=== PATIENT | male | born 1940 | race Caucasian/White ===

== ENCOUNTER 2018-09-20 01:58 | Emergency (ER) | payer MEDICARE, SELFPAY ==
[2018-09-20] VITALS (9 sets, daily range): BP systolic 88–192; BP diastolic 67–160; PULSE 67–148; RESP 18–36; TEMP 36.8; O2SAT 96–99; BMI 31.1
--- NOTE | 2018-09-20 02:03 | DI.RAD.S_ITS ---
PROCEDURE: XR CHEST 1V INDICATIONS: shortness of breath, chest pain TECHNIQUE: One view of the chest was acquired. COMPARISON: None. FINDINGS: Surgical changes and devices: None. Lungs and pleura: No pleural effusions or pneumothorax. Lungs are clear. Mediastinum: Mediastinal contours appear normal. Heart size is enlarged. Bones and chest wall: No suspicious bony lesions. Overlying soft tissues appear unremarkable. IMPRESSION: Cardiomegaly. No acute pulmonary findings. Dictated by: Diane Lopez M.D. on 09/20/2018 at 8:27 Approved by: Diane Lopez M.D. on 09/20/2018 at 8:27
[2018-09-20] MEDS: SODIUM CHLORIDE 0.9% 1,000 ML 150 ML IV (02:08)
[2018-09-20] MEDS: ASPIRIN 81 MG TAB 324 MG PO (02:08)
--- NOTE | 2018-09-20 02:09 | ED.CHESTPAIN ---
HPI - Chest Pain General Chief Complaint: Chest Pain Stated Complaint: chest pain Time Seen by Provider: 09/20/18 02:02 Source: patient and family Mode of arrival: ambulatory Limitations: no limitations History of Present Illness HPI narrative: 78-year-old nonsmoker with cardiac history presents with his and a chief complaint of gradually worsening chest pain for the past 2-3 days. He has had increasing exercise intolerance and has become more short of breath and weak with exertion. He has had this anterior chest pain for the past day or 2 and states his notably worse when he lays flat or takes any kind of breath. He denies being recently ill with runny nose, sore throat or cough. He denies any history blood clots. MD complaint: chest pain Onset (ago): day(s) Duration: constant and progressively worsening Onset: during rest Pain location: substernal and left chest Severity: moderate Quality: tightness and aching Pain radiation: LUE Relieving factors: nothing Exacerbating factors: movement Associated symptoms: nausea and dyspnea Treatments prior to arrival chest pain: none Related Data Home Medications Medication Instructions Recorded Confirmed furosemide 20 mg PO QDAY #0 10/15/16 furosemide 40 mg PO QDAY #0 10/15/16 spironolactone [Aldactone] 25 mg PO QDAY #0 10/15/16 Allergies Allergy/AdvReac Type Severity Reaction Status Date / Time No Known Drug Allergies Allergy Verified 09/20/18 02:09 Review of Systems Review of Systems All systems reviewed & are unremarkable except as noted in HPI and below Constitutional Denies chills, Denies fever(s), Denies lethargy and Denies weakness Eyes Denies change in vision, Denies eye discharge, Denies irritation and Denies loss of vision ENT Ears, Nose, Mouth, and Throat: Denies change in voice, Denies neck pain and Denies sore throat Cardiovascular Reports chest pain, Denies irregular heart rhythm, Denies lightheadedness, Denies palpitations, Reports dyspnea, Reports dyspnea on exertion and Denies orthopnea Respiratory Denies cough, Reports dyspnea, Reports dyspnea on exertion and Denies wheezing Gastrointestinal Gastrointestinal: Denies abdominal pain, Denies change in bowel habits, Denies diarrhea, Denies nausea and Denies vomiting Genitourinary Denies hematuria, Denies flank pain, Denies urinary incontinence and Denies urinary urgency Musculoskeletal Denies neck pain Integumentary/Breasts Denies pruritus, Denies erythema, Denies rash and Denies wounds Neurologic Denies confusion, Denies loss of vision and Denies weakness Psychiatric Denies anxiety, Denies confusion, Denies depression, Denies homicidal ideation and Denies suicidal ideation Endocrine Denies palpitations Hematologic/Lymphatic Denies easy bruising Allergic/Immunologic Denies wheezing [facility] Surgical History Status post hernia repair Social History Smoking Status: Never smoker Exam Narrative Exam Narrative: GENERAL: 78-year-old male, ill-appearing and in obvious distress, clutching his anterior chest, resistant to take a deep breath HEAD: Atraumatic. Normocephalic. No temporal or scalp tenderness. EYES: Pupils equal round and reactive. Extraocular motions intact. No scleral icterus. No injection or drainage. ENT: Nose without bleeding, purulent drainage or septal hematoma. Throat without erythema, tonsillar hypertrophy or exudate. Uvula midline. Airway patent. NECK: Trachea midline. No JVD or lymphadenopathy. Supple, nontender, no meningeal signs. CARDIOVASCULAR: Tachycardic rate and regular arhythm without murmurs, gallops, or rubs. RESPIRATORY: Clear to auscultation. Breath sounds equal bilaterally. No wheezes, rales, or rhonchi. GASTROINTESTINAL: Abdomen soft, non-tender, nondistended. No hepato-splenomegaly, or palpable masses. No guarding. EXTREMITIES: No clubbing, cyanosis, or edema. No joint tenderness, effusion, or edema noted. BACK: Nontender without deformity or crepitance. No flank tenderness. NEURO: AOx3. SKIN: pale, clammy Initial Vital Signs Initial Vital Signs: Vital Signs Pulse Rate 148 H 09/20/18 02:05 Respiratory Rate 36 H 09/20/18 02:05 Blood Pressure 169/105 H 09/20/18 02:05 Pulse Oximetry 99 09/20/18 02:05 Procedures Cardioversion Indication: chest pain with tachy arrhythmia Stability: Unstable ASA Class: III Mallampati Airway Classification: Class II Preparation: environmental monitoring technician applied, pulse oximeter, capnometry used, supplemental O2 applied, suction/airway equipment at bedside and IV secured IV Propofol Dose (mgs): 50 Joules used: 50 ED Sedation Level: Moderate (Concious) Cardiac rhythm post-cardioversion: NSR Patient tolerated procedure sedation: Well Complications sedation: none Procedural Sedation Patient Age: Patient is 5yrs or older Indication: other Preparation: environmental monitoring technician applied, pulse oximeter, capnometry used, supplemental O2 applied and suction/airway equipment at bedside IV Propofol dose (mg): 50 ED Sedation Level: Moderate (Concious) Complications: none Course Orders Ordered: ED Orders 09/20/18 EKG-12 Lead Routine 09/20/18 02:03 XR chest 1V Stat EKG-12 Lead Stat 09/20/18 02:13 B Type Natriuretic Peptide Stat Complete Blood Count AUTO DIFF Stat Comprehensive Metabolic Panel Stat D Dimer Stat Lipase Stat Prothrombin Time INR Stat Troponin & CK Cardiac Panel Stat Discontinued Medications Aspirin (Aspirin Chew) 324 mg PO NOW ONE Stop: 09/20/18 02:04 Last Admin: 09/20/18 02:08 Dose: 324 mg Sodium Chloride (Normal Saline 0.9%) 1,000 mls @ 150 mls/hr IV CONT EVY Last Infusion: 09/20/18 04:01 Dose: 0 mls/hr Admin: 09/20/18 02:08 Dose: 150 mls/hr Metoprolol Tartrate (Lopressor) 5 mg IV Q5M COUNT INCLUDES THE [facility] Stop: 09/20/18 02:26 Last Admin: 09/20/18 02:24 Dose: 5 mg Admin: 09/20/18 02:19 Dose: 5 mg Admin: 09/20/18 02:14 Dose: 5 mg Propofol (Diprivan) 50 mg 0.5 mg/kg (50 mg) IV NOW ONE Stop: 09/20/18 03:46 Last Admin: 09/20/18 02:54 Dose: 50 mg Reevaluation(s) Reevaluation #1: Patient has near complete resolution of his chest pain and shortness of breath any other symptoms post cardioversion. He is quite thankful for the success of the procedure and is ready to go Vital Signs - 8 hr 09/20/18 02:05 09/20/18 02:09 09/20/18 02:20 Temperature 98.3 F Pulse Rate 148 H 130 H 127 H Respiratory Rate 36 H 24 33 H Blood Pressure 192/160 H Blood Pressure [Left Arm] 169/105 H 133/89 Pulse Oximetry 99 97 98 09/20/18 02:46 09/20/18 03:00 09/20/18 03:08 Temperature Pulse Rate 125 H 67 67 Respiratory Rate 31 H 23 22 Blood Pressure Blood Pressure [Left Arm] 88/67 L 98/71 Pulse Oximetry 96 97 98 09/20/18 03:18 09/20/18 03:26 09/20/18 03:30 Temperature Pulse Rate 72 72 76 Respiratory Rate 18 18 Blood Pressure Blood Pressure [Left Arm] 109/75 112/81 116/72 Pulse Oximetry 98 98 MDM - Chest Pain Differential Diagnosis Likely stable angina and st elevation myocardial infarction Medical Records Data Attestation: I reviewed the patient's medical records. Lab Data Attestation: I reviewed the patient's lab results. Result diagrams: 09/20/18 02:13 09/20/18 02:13 Lab Results 09/20/18 09/20/18 09/20/18 Range/Units 02:13 02:13 02:13 WBC 16.8 H (4.5-11.0) X10^3/uL RBC 5.46 (4.5-5.9) X10^6/uL Hgb 17.4 (13.5-17.5) g/dL Hct 51.8 (41-53) % MCV 94.9 (80-100) fL MCH 31.9 (26-34) PG MCHC 33.6 (30-36) % RDW 15.1 H (11.6-14.8) % Plt Count 292 (150-400) X10^3/uL Neut % (Auto) 75.9 H (50-75) % Lymph % (Auto) 12.4 L (25-40) % [place] % (Auto) 10.0 (3-14) % Eos % (Auto) 0.3 L (2-4) % Baso % (Auto) 1.4 (0-2) % Neut # (Auto) 23802 H (0810-9711) /uL PT 14.5 H (10.1-12.7) SECONDS INR 1.2 (0.9-1.3) D-Dimer 266 H (<230) ng/mL Sodium 140 (137-145) mmol/L Potassium 4.0 (3.4-5.1) mmol/L Chloride 96 L (98-107) mmol/L Carbon Dioxide 29 (22-32) mmol/L BUN 37 H (9-20) mg/dL Creatinine 1.30 H (0.66-1.25) mg/dL Estimated GFR 53.7 L (>60) mL/min BUN/Creatinine Ratio 28.5 H (6-22) Glucose 199 H (80-110) mg/dL Calcium 10.1 (8.4-10.2) mg/dL Total Bilirubin 2.0 H (0.2-1.3) mg/dL AST 28 (17-59) IU/L ALT 21 (21-72) IU/L Alkaline Phosphatase 75 (38-126) U/L Total Creatine Kinase 30 L (55-170) U/L CK-MB (CK-2) TNP CK-MB (CK-2) Rel Index TNP Troponin I 0.023 (0.01-0.034) ng/mL B-Natriuretic Peptide < 100 (<100) Total Protein 8.8 H (6.3-8.2) g/dL Albumin 4.9 (3.5-5.0) g/dL Globulin 3.9 (1.7-4.1) g/dL Albumin/Globulin Ratio 1.3 (1.0-2.8) Lipase 80 (23-300) U/L ECG Data Attestation: I personally reviewed and interpreted this ECG as follows: Interpretation: Atrial flutter, rate 120 hyperacute T-waves in septal leads post conversion notes NSR without signs of ischemia or ectopy Discharge Plan Departure Patient Disposition: Home Clinical Impression: Atrial flutter, Obstructive sleep apnea syndrome Discharge Date/Time: 09/20/18 04:09 Interventions: ED Discharge Assessment Last Done: 09/20/18 04:07 Instructions: Atrial Flutter Activity Restrictions/Additional Instructions: *You have been diagnosed with [ atrial flutter ] *What to do: *Take medications as directed *Follow up with your primary care provider in 2-3 days, call for an appointment. Let them know you were seen in the Emergency Department and that we ask that you be seen in follow up *Return to ER if you should have any new, worsening or concerning symptoms, such as [ ] Prescriptions: No Action furosemide 20 MG tablet 20 mg PO QDAY Qty: 0 RF: 0 furosemide 40 MG tablet 40 mg PO QDAY Qty: 0 RF: 0 spironolactone [Aldactone] 25 MG tablet 25 mg PO QDAY Qty: 0 RF: 0 Referrals: Fredrick Hilario MD [Primary Care Provider] -
[2018-09-20] MEDS: METOPROLOL TARTRATE 5 MG/5 ML INJ IV ×3 (02:14→02:24)
--- NOTE | 2018-09-20 02:14 | ED_ITS ---
HPI - Chest Pain General Chief Complaint: Chest Pain Stated Complaint: chest pain Time Seen by Provider: 09/20/18 02:02 Source: patient and family Mode of arrival: ambulatory Limitations: no limitations History of Present Illness HPI narrative: 78-year-old nonsmoker with cardiac history presents with his and a chief complaint of gradually worsening chest pain for the past 2-3 days. He has had increasing exercise intolerance and has become more short of breath and weak with exertion. He has had this anterior chest pain for the past day or 2 and states his notably worse when he lays flat or takes any kind of breath. He denies being recently ill with runny nose, sore throat or cough. He denies any history blood clots. MD complaint: chest pain Onset (ago): day(s) Duration: constant and progressively worsening Onset: during rest Pain location: substernal and left chest Severity: moderate Quality: tightness and aching Pain radiation: LUE Relieving factors: nothing Exacerbating factors: movement Associated symptoms: nausea and dyspnea Treatments prior to arrival chest pain: none Related Data Home Medications Medication Instructions Recorded Confirmed furosemide 20 mg PO QDAY #0 10/15/16 furosemide 40 mg PO QDAY #0 10/15/16 spironolactone [Aldactone] 25 mg PO QDAY #0 10/15/16 Allergies Allergy/AdvReac Type Severity Reaction Status Date / Time No Known Drug Allergies Allergy Verified 09/20/18 02:09 Review of Systems Review of Systems All systems reviewed & are unremarkable except as noted in HPI and below Constitutional Denies chills, Denies fever(s), Denies lethargy and Denies weakness Eyes Denies change in vision, Denies eye discharge, Denies irritation and Denies loss of vision ENT Ears, Nose, Mouth, and Throat: Denies change in voice, Denies neck pain and Denies sore throat Cardiovascular Reports chest pain, Denies irregular heart rhythm, Denies lightheadedness, Denies palpitations, Reports dyspnea, Reports dyspnea on exertion and Denies orthopnea Respiratory Denies cough, Reports dyspnea, Reports dyspnea on exertion and Denies wheezing Gastrointestinal Gastrointestinal: Denies abdominal pain, Denies change in bowel habits, Denies diarrhea, Denies nausea and Denies vomiting Genitourinary Denies hematuria, Denies flank pain, Denies urinary incontinence and Denies urinary urgency Musculoskeletal Denies neck pain Integumentary/Breasts Denies pruritus, Denies erythema, Denies rash and Denies wounds Neurologic Denies confusion, Denies loss of vision and Denies weakness Psychiatric Denies anxiety, Denies confusion, Denies depression, Denies homicidal ideation and Denies suicidal ideation Endocrine Denies palpitations Hematologic/Lymphatic Denies easy bruising Allergic/Immunologic Denies wheezing [facility] Surgical History Status post hernia repair Social History Smoking Status: Never smoker Exam Narrative Exam Narrative: GENERAL: 78-year-old male, ill-appearing and in obvious distress, clutching his anterior chest, resistant to take a deep breath HEAD: Atraumatic. Normocephalic. No temporal or scalp tenderness. EYES: Pupils equal round and reactive. Extraocular motions intact. No scleral icterus. No injection or drainage. ENT: Nose without bleeding, purulent drainage or septal hematoma. Throat without erythema, tonsillar hypertrophy or exudate. Uvula midline. Airway patent. NECK: Trachea midline. No JVD or lymphadenopathy. Supple, nontender, no meningeal signs. CARDIOVASCULAR: Tachycardic rate and regular arhythm without murmurs, gallops, or rubs. RESPIRATORY: Clear to auscultation. Breath sounds equal bilaterally. No wheezes , rales, or rhonchi. GASTROINTESTINAL: Abdomen soft, non-tender, nondistended. No hepato-splenomegaly , or palpable masses. No guarding. EXTREMITIES: No clubbing, cyanosis, or edema. No joint tenderness, effusion, or edema noted. BACK: Nontender without deformity or crepitance. No flank tenderness. NEURO: AOx3. SKIN: pale, clammy Initial Vital Signs Initial Vital Signs: Vital Signs Pulse Rate 148 H 09/20/18 02:05 Respiratory Rate 36 H 09/20/18 02:05 Blood Pressure 169/105 H 09/20/18 02:05 Pulse Oximetry 99 09/20/18 02:05 Procedures Cardioversion Indication: chest pain with tachy arrhythmia Stability: Unstable ASA Class: III Mallampati Airway Classification: Class II Preparation: campus monitor applied, pulse oximeter, capnometry used, supplemental O2 applied, suction/airway equipment at bedside and IV secured IV Propofol Dose (mgs): 50 Joules used: 50 ED Sedation Level: Moderate (Concious) Cardiac rhythm post-cardioversion: NSR Patient tolerated procedure sedation: Well Complications sedation: none Procedural Sedation Patient Age: Patient is 5yrs or older Indication: other Preparation: campus monitor applied, pulse oximeter, capnometry used, supplemental O2 applied and suction/airway equipment at bedside IV Propofol dose (mg): 50 ED Sedation Level: Moderate (Concious) Complications: none Course Orders Ordered: ED Orders 09/20/18 EKG-12 Lead Routine 09/20/18 02:03 XR chest 1V Stat EKG-12 Lead Stat 09/20/18 02:13 B Type Natriuretic Peptide Stat Complete Blood Count AUTO DIFF Stat Comprehensive Metabolic Panel Stat D Dimer Stat Lipase Stat Prothrombin Time INR Stat Troponin & CK Cardiac Panel Stat Discontinued Medications Aspirin (Aspirin Chew) 324 mg PO NOW ONE Stop: 09/20/18 02:04 Last Admin: 09/20/18 02:08 Dose: 324 mg Sodium Chloride (Normal Saline 0.9%) 1,000 mls @ 150 mls/hr IV CONT EVY Last Infusion: 09/20/18 04:01 Dose: 0 mls/hr Admin: 09/20/18 02:08 Dose: 150 mls/hr Metoprolol Tartrate (Lopressor) 5 mg IV Q5M [facility] Stop: 09/20/18 02:26 Last Admin: 09/20/18 02:24 Dose: 5 mg Admin: 09/20/18 02:19 Dose: 5 mg Admin: 09/20/18 02:14 Dose: 5 mg Propofol (Diprivan) 50 mg 0.5 mg/kg (50 mg) IV NOW ONE Stop: 09/20/18 03:46 Last Admin: 09/20/18 02:54 Dose: 50 mg Reevaluation(s) Reevaluation #1: Patient has near complete resolution of his chest pain and shortness of breath any other symptoms post cardioversion. He is quite thankful for the success of the procedure and is ready to go Vital Signs - 8 hr 09/20/18 02:05 09/20/18 02:09 09/20/18 02:20 Temperature 98.3 F Pulse Rate 148 H 130 H 127 H Respiratory Rate 36 H 24 33 H Blood Pressure 192/160 H Blood Pressure [Left Arm] 169/105 H 133/89 Pulse Oximetry 99 97 98 09/20/18 02:46 09/20/18 03:00 09/20/18 03:08 Temperature Pulse Rate 125 H 67 67 Respiratory Rate 31 H 23 22 Blood Pressure Blood Pressure [Left Arm] 88/67 L 98/71 Pulse Oximetry 96 97 98 09/20/18 03:18 09/20/18 03:26 09/20/18 03:30 Temperature Pulse Rate 72 72 76 Respiratory Rate 18 18 Blood Pressure Blood Pressure [Left Arm] 109/75 112/81 116/72 Pulse Oximetry 98 98 MDM - Chest Pain Differential Diagnosis Likely stable angina and st elevation myocardial infarction Medical Records Data Attestation: I reviewed the patient's medical records. Lab Data Attestation: I reviewed the patient's lab results. Result diagrams: 09/20/18 02:13 09/20/18 02:13 Lab Results 09/20/18 09/20/18 09/20/18 Range/Units 02:13 02:13 02:13 WBC 16.8 H (4.5-11.0) X10^3/uL RBC 5.46 (4.5-5.9) X10^6/uL Hgb 17.4 (13.5-17.5) g/dL Hct 51.8 (41-53) % MCV 94.9 (80-100) fL MCH 31.9 (26-34) PG MCHC 33.6 (30-36) % RDW 15.1 H (11.6-14.8) % Plt Count 292 (150-400) X10^3/uL Neut % (Auto) 75.9 H (50-75) % Lymph % (Auto) 12.4 L (25-40) % [place] % (Auto) 10.0 (3-14) % Eos % (Auto) 0.3 L (2-4) % Baso % (Auto) 1.4 (0-2) % Neut # (Auto) 71827 H (6605-7502) /uL PT 14.5 H (10.1-12.7) SECONDS INR 1.2 (0.9-1.3) D-Dimer 266 H (<230) ng/mL Sodium 140 (137-145) mmol/L Potassium 4.0 (3.4-5.1) mmol/L Chloride 96 L (98-107) mmol/L Carbon Dioxide 29 (22-32) mmol/L BUN 37 H (9-20) mg/dL Creatinine 1.30 H (0.66-1.25) mg/dL Estimated GFR 53.7 L (>60) mL/min BUN/Creatinine Ratio 28.5 H (6-22) Glucose 199 H (80-110) mg/dL Calcium 10.1 (8.4-10.2) mg/dL Total Bilirubin 2.0 H (0.2-1.3) mg/dL AST 28 (17-59) IU/L ALT 21 (21-72) IU/L Alkaline Phosphatase 75 (38-126) U/L Total Creatine Kinase 30 L (55-170) U/L CK-MB (CK-2) TNP CK-MB (CK-2) Rel Index TNP Troponin I 0.023 (0.01-0.034) ng/mL B-Natriuretic Peptide < 100 (<100) Total Protein 8.8 H (6.3-8.2) g/dL Albumin 4.9 (3.5-5.0) g/dL Globulin 3.9 (1.7-4.1) g/dL Albumin/Globulin Ratio 1.3 (1.0-2.8) Lipase 80 (23-300) U/L ECG Data Attestation: I personally reviewed and interpreted this ECG as follows: Interpretation: Atrial flutter, rate 120 hyperacute T-waves in septal leads post conversion notes NSR without signs of ischemia or ectopy Discharge Plan Departure Patient Disposition: Home Clinical Impression: Atrial flutter, Obstructive sleep apnea syndrome Discharge Date/Time: 09/20/18 04:09 Interventions: ED Discharge Assessment Last Done: 09/20/18 04:07 Instructions: Atrial Flutter Activity Restrictions/Additional Instructions: *You have been diagnosed with [ atrial flutter ] *What to do: *Take medications as directed *Follow up with your primary care provider in 2-3 days, call for an appointment. Let them know you were seen in the Emergency Department and that we ask that you be seen in follow up *Return to ER if you should have any new, worsening or concerning symptoms , such as [ ] Prescriptions: No Action furosemide 20 MG tablet 20 mg PO QDAY Qty: 0 RF: 0 furosemide 40 MG tablet 40 mg PO QDAY Qty: 0 RF: 0 spironolactone [Aldactone] 25 MG tablet 25 mg PO QDAY Qty: 0 RF: 0 Referrals: Fredrick Hilario MD [Primary Care Provider] -
[2018-09-20 02:23] LABS: Add Manual Diff / Slide Review NO; Basophils Percent Auto 1.4 % (0-2); Eosinophils Percent Auto 0.3 % (2-4); Hematocrit 51.8 % (41-53); Hemoglobin 17.4 g/dL (13.5-17.5); INR 1.2 (0.9-1.3); Lymphocytes Percent Auto 12.4 % (25-40); Mean Corpuscular HGB Conc 33.6 % (30-36); Mean Corpuscular Hemoglobin 31.9 PG (26-34); Mean Corpuscular Volume 94.9 fL (80-100); Neutrophils Absolute Auto 12700 /uL (1500-7000); Neutrophils Percent Auto 75.9 % (50-75); Platelet Count 292 X10^3/uL (150-400); Prothrombin Time 14.5 SECONDS (10.1-12.7); Red Blood Cell Count 5.46 X10^6/uL (4.5-5.9); Red Cell Distribution Width 15.1 % (11.6-14.8); White Blood Cell Count 16.8 X10^3/uL (4.5-11.0)
[2018-09-20 02:26] LABS: D Dimer 266 ng/mL (<230)
[2018-09-20 02:27] LABS: Alanine Aminotransferase 21 IU/L (21-72); Albumin 4.9 g/dL (3.5-5.0); Albumin Globulin Ratio 1.3 (1.0-2.8); Alkaline Phosphatase 75 U/L (38-126); Aspartate Aminotransferase 28 IU/L (17-59); BUN Creatinine Ratio 28.5 (6-22); Blood Urea Nitrogen 37 mg/dL (9-20); Calcium 10.1 mg/dL (8.4-10.2); Carbon Dioxide 29 mmol/L (22-32); Chloride 96 mmol/L (98-107); Creatine Kinase 30 U/L (55-170); Estimated Glomerular Filt Rate 53.7 mL/min (>60); Globulin 3.9 g/dL (1.7-4.1); Glucose 199 mg/dL (80-110); HEMOLYSIS 47 (0-50); Lipase 80 U/L (23-300); Sodium 140 mmol/L (137-145); Total Protein 8.8 g/dL (6.3-8.2)
[2018-09-20 02:39] LABS: Troponin I 0.023 ng/mL (0.01-0.034)
[2018-09-20 02:53] LABS: B Type Natriuretic Peptide < 100 (<100)
[2018-09-20] MEDS: PROPOFOL 200 MG/20 ML VIAL 50 MG IV (02:54)
== END 2018-09-20 04:09 | disposition home or self-care (01) ==
PROVIDERS: Emergency Provider Emergency Medicine; PCP Family Medicine
DX: I48.92 Unspecified atrial flutter (principal); G47.33 Obstructive sleep apnea (adult) (pediatric)
CPT/HCPCS: 36591; 71045; 80053; 82550; 83690; 83880; 84484; 85025; 85379; 85610; 92960; 93005; 94770; 96361; 96374; 99151; 99153; 99284; 99291; J2704

== ENCOUNTER 2020-07-22 10:09 | Emergency (ER) | payer OTHER, SELFPAY ==
[2020-07-22] VITALS (97 sets, daily range): BP systolic 67–127; BP diastolic 46–70; PULSE 46–150; RESP 14–30; TEMP 36.6; O2SAT 95–100
--- NOTE | 2020-07-22 10:18 | ED_ITS ---
HPI - Arrhythmia/Palpitations General Chief Complaint: Arrhythmia/Palpitations Stated Complaint: Light Headed, Tachycardia Time Seen by Provider: 07/22/20 10:18 Source: EMS Mode of arrival: EMS Limitations: no limitations History of Present Illness HPI narrative: This is a 80-year-old male comes to the emergency department with approximately 24 hours of lightheadedness, presyncope, shortness of breath particularly with exertion and tachycardia. Patient states he noticed that his heart rate became elevated yesterday at about 8:00 a.m.. Patient states that it has continued. He started feeling a little bit more short of breath and lightheaded today and had not resolved so he ultimately called EMS came to the ED. He has not had any fevers or chills. He denies any chest pain or pressure. He describes his shortness of breath mostly with exertion. Same thing with his presyncope or lightheadedness mostly with exertion although he feels a little lightheaded is laying. He denies any swelling in his extremities. He denies any nausea, no vomiting, no other GI or urinary symptoms. He has a known history of atrial fibrillation and had an ablation in November of 2018. He states he does take Eliquis daily he has not had his dose this morning. Patient thinks they did do a cardiac catheterization with his ablation but did not have any cardiac stents placed. He states he has had some repairs, tonsils and adenoids. He denies any other surgeries. He takes medications for hypertension, dyslipidemia, diabetes in addition to allopurinol. He states his metoprolol dose was decreased to 25 mg in the past but he is unsure if he is taking it twice daily or once daily. Patient denies any tobacco, states he has not had any alcohol since April, denies any illicit. Related Data Home Medications Medication Instructions Recorded Confirmed furosemide 20 mg PO QDAY #0 10/15/16 furosemide 40 mg PO QDAY #0 10/15/16 spironolactone [Aldactone] 25 mg PO QDAY #0 10/15/16 Allergies Allergy/AdvReac Type Severity Reaction Status Date / Time No Known Drug Allergies Allergy Verified 07/22/20 10:17 Review of Systems Review of Systems ROS Unobtainable: All systems reviewed & are unremarkable except as noted in HPI and below Patient History Surgical History (Updated 07/22/20 @ 10:25 by Maggie Foote DO) H/O cardiac radiofrequency ablation (Acute) Status post hernia repair Social History Smoking Status: Never smoker Smoking Status: Never smoker alcohol intake frequency: 0-2 drinks per day Substance Use Type: does not use Exam Narrative Exam Narrative: GENERAL: Alert and oriented x three, obese male in mild distress. HEENT: Head normocephalic, atraumatic, EOMI, pupils reactive, face symmetric, moist mucous membranes NECK: Supple, full range of motion CARDIOVASCULAR: Tachycardic but fairly regular rate and rhythm without murmurs, rubs or gallops. No JVD no edema bilateral lower extremities. RESPIRATORY: Breath sounds equal bilaterally, no wheezes, no crackles, rales or rhonchi. No tachypnea accessory muscle use. ABDOMEN: Soft, nontender. Normoactive bowel sounds all 4 quadrants. No guarding or rebound, rigidity, no mass : No CVA tenderness EXTREMITIES: Normal range of motion, no clubbing or edema. Neurovascularly intact NEUROLOGICAL: Cranial nerves II through XII grossly intact. Moving all extremities SKIN: Warm, dry, no petechiae, no rashes or lesions. Initial Vital Signs Initial Vital Signs: Vital Signs Temperature 97.9 F 07/22/20 10:13 Pulse Rate 150 H 07/22/20 10:13 Respiratory Rate 20 07/22/20 10:13 Blood Pressure 102/70 07/22/20 10:13 Pulse Oximetry 100 07/22/20 10:13 Procedures Cardioversion Consent Signed: Yes Indication: AFib with RVR and intermittent V-tach, hypotension Stability: Unstable Number of attempts (shocks): 1 Joules used: 150 Cardiac rhythm post-cardioversion: Possible junctional bradycardia, rate of 61 Procedural Sedation Consent signed: Yes Time out performed: Yes Indication: cardioversion ASA Class: II Mallampati Airway Classification: Class II Time of Last PO Intake: 20:00 Preparation: bus driver/monitor applied, pulse oximeter, capnometry used, supplemental O2 applied, suction/airway equipment at bedside and IV secured IV Etomidate dose (mg): 10 ED Sedation Level: Moderate (Concious) Patient Tolerated Procedure: Well Complications: none Course Orders Ordered: ED Orders 07/22/20 10:00 Complete Blood Count AUTO DIFF Stat Comprehensive Metabolic Panel Stat Magnesium Stat Partial Thromboplastin Time Stat Prothrombin Time INR Stat Thyroid Stimulating Hormone Stat Troponin & CK Cardiac Panel Stat 07/22/20 10:18 XR chest 1V Stat EKG-12 Lead Stat 07/22/20 11:15 EKG-12 Lead Routine 07/22/20 12:10 COVID19 -ED/INPAT/OR/L&D Stat Discontinued Medications Apixaban (Eliquis) 5 mg PO NOW ONE Stop: 07/22/20 10:19 Last Admin: 07/22/20 12:42 Dose: 5 mg Documented by: HOLLIS Diltiazem HCl (Cardizem) 10 mg IV NOW ONE Stop: 07/22/20 10:19 Last Admin: 07/22/20 10:27 Dose: 10 mg Documented by: BRIAN Diltiazem HCl (Cardizem) 10 mg IV NOW ONE Stop: 07/22/20 10:41 Last Admin: 07/22/20 10:46 Dose: 10 mg Documented by: ANGIEINOR Sodium Chloride (Normal Saline 0.9%) 1,000 mls @ 1,000 mls/hr IV BOLUS ONE Stop: 07/22/20 11:17 Last Infusion: 07/22/20 11:02 Dose: 0 mls/hr Documented by: Admin: 07/22/20 10:27 Dose: 1,000 mls/hr Documented by: BRIAN DILTIAZEM (Diltiazem 125 Mg/125 [id number]) 125 mg in 125 mls @ 5 mls/hr IV TITRATE EVY; Protocol Last Titration: 07/22/20 11:10 Dose: 5 mg/hr, 5 mls/hr Documented by: Admin: 07/22/20 10:31 Dose: 5 mg/hr, 5 mls/hr Documented by: ANGIEINOR Sodium Chloride (Normal Saline 0.9%) 1,000 mls @ 125 mls/hr IV BOLUS ONE Stop: 07/22/20 18:50 Last Admin: 07/22/20 11:02 Dose: 125 mls/hr Documented by: ZENY Amiodarone HCl/Dextrose (Nexterone) 150 mg in 100 mls @ 600 mls/hr IV NOW ONE Stop: 07/22/20 11:09 Last Infusion: 11/06/20 11:25 Dose: 0 mls/hr Documented by: Admin: 07/22/20 11:12 Dose: 600 mls/hr Documented by: HOLLIS Amiodarone HCl/Dextrose (Nexterone) 360 mg in 200 mls @ 33.333 mls/hr IV NOW ONE; Protocol Stop: 07/22/20 17:04 Last Titration: 07/22/20 17:23 Dose: 0 mls/hr, 0 mls/hr Documented by: Admin: 07/22/20 11:30 Dose: 33.33 mls/hr, 33.333 mls/hr Documented by: HOLLIS Amiodarone HCl/Dextrose (Nexterone) 541 mg in 300.56 mls @ 16.7 mls/hr IV CONT EVY; Protocol Stop: 08/22/20 05:15 Last Admin: 07/22/20 17:22 Dose: 16.7 mls/hr, 16.7 mls/hr Documented by: ZENY Amiodarone HCl/Dextrose (Nexterone) 541 mg in 300.56 mls @ 16.7 mls/hr IV CONT EVY; Protocol Stop: 08/22/20 09:00 Last Admin: 07/22/20 17:22 Dose: Not Given Documented by: ZENY Reevaluation(s) Reevaluation #2: Patient continues to feel better after his cardioversion. Bed assignment has been made and EMS transportation has been set up. Time: 16:06 Consultations Consultation #1: Dr. Rayo, recommends transfer to [facility]. He would like to have telemetry strips from before and after with episodes of ventricular tachycardia. We did discussed plan to continue amiodarone. And patient is to take his Eliquis today which he had not taken yet this morning. Time: 11:30 Consultation #2: Spoke with Dr. Smalls who does not feel transfer is warranted. He will discuss with cardiology, Dr. Rayo. Callback from coordinator and patient is accepted by Dr. Smalls at [facility]. Time: 12:38 Vital Signs Vital signs: Vital Signs - 8 hr 07/22/20 10:21 07/22/20 10:25 07/22/20 10:27 Pulse Rate 148 H 149 H 148 H Respiratory Rate 20 18 Blood Pressure 114/69 Pulse Oximetry 99 100 07/22/20 10:30 07/22/20 10:35 07/22/20 10:40 Pulse Rate 148 H 122 H 150 H Respiratory Rate 18 18 22 Blood Pressure 114/69 Pulse Oximetry 100 99 99 07/22/20 10:45 07/22/20 10:50 07/22/20 10:55 Pulse Rate 147 H 142 H 114 H Respiratory Rate 21 20 23 Blood Pressure 91/66 88/61 L 86/64 L Pulse Oximetry 99 98 97 07/22/20 11:00 07/22/20 11:01 07/22/20 11:05 Pulse Rate 136 H 125 H 88 Respiratory Rate 17 18 Blood Pressure 67/51 L Pulse Oximetry 98 98 98 07/22/20 11:06 07/22/20 11:10 07/22/20 11:15 Pulse Rate 92 H 92 H 94 H Respiratory Rate 17 21 16 Blood Pressure 112/57 L 85/46 L 108/52 L Pulse Oximetry 98 98 97 07/22/20 11:16 07/22/20 11:18 07/22/20 11:20 Pulse Rate 46 L 57 L 61 Respiratory Rate 17 19 18 Blood Pressure 86/54 L 98/57 L 99/52 L Pulse Oximetry 95 96 98 07/22/20 11:25 07/22/20 11:30 07/22/20 11:35 Pulse Rate 68 67 68 Respiratory Rate 21 18 18 Blood Pressure 91/57 L 95/59 L 97/64 Pulse Oximetry 96 98 98 07/22/20 11:40 07/22/20 11:45 07/22/20 11:50 Pulse Rate 68 68 68 Respiratory Rate 25 H 24 19 Blood Pressure 101/61 102/62 97/58 L Pulse Oximetry 98 99 98 07/22/20 11:55 07/22/20 12:00 07/22/20 12:05 Pulse Rate 67 68 67 Respiratory Rate 21 19 18 Blood Pressure 94/54 L 104/56 L 87/53 L Pulse Oximetry 98 98 99 07/22/20 12:10 07/22/20 12:15 07/22/20 12:20 Pulse Rate 67 67 68 Respiratory Rate 21 20 20 Blood Pressure 87/55 L 92/53 L 95/55 L Pulse Oximetry 98 99 99 07/22/20 12:25 07/22/20 12:30 07/22/20 12:35 Pulse Rate 68 71 68 Respiratory Rate 22 22 25 H Blood Pressure 101/61 Pulse Oximetry 100 99 99 07/22/20 12:40 07/22/20 12:45 07/22/20 12:50 Pulse Rate 72 67 68 Respiratory Rate 23 21 22 Blood Pressure Pulse Oximetry 96 100 100 07/22/20 12:55 07/22/20 13:00 07/22/20 13:05 Pulse Rate 71 66 67 Respiratory Rate 21 19 19 Blood Pressure 101/57 L Pulse Oximetry 100 100 99 07/22/20 13:10 07/22/20 13:15 07/22/20 13:20 Pulse Rate 66 67 67 Respiratory Rate 19 21 17 Blood Pressure Pulse Oximetry 99 99 100 07/22/20 13:25 07/22/20 13:30 07/22/20 13:35 Pulse Rate 66 67 65 Respiratory Rate 17 18 21 Blood Pressure 99/56 L Pulse Oximetry 100 100 100 07/22/20 13:40 07/22/20 13:45 07/22/20 13:50 Pulse Rate 65 72 67 Respiratory Rate 24 19 25 H Blood Pressure Pulse Oximetry 100 100 100 07/22/20 13:55 07/22/20 14:00 07/22/20 14:01 Pulse Rate 65 64 64 Respiratory Rate 19 21 23 Blood Pressure 119/55 L Pulse Oximetry 100 100 100 07/22/20 14:05 07/22/20 14:10 07/22/20 14:15 Pulse Rate 65 69 66 Respiratory Rate 19 20 17 Blood Pressure Pulse Oximetry 100 100 100 07/22/20 14:20 07/22/20 14:25 07/22/20 14:30 Pulse Rate 67 65 65 Respiratory Rate 18 20 16 Blood Pressure 120/58 L Pulse Oximetry 100 100 100 07/22/20 14:35 07/22/20 14:40 07/22/20 14:45 Pulse Rate 64 70 67 Respiratory Rate 23 16 19 Blood Pressure Pulse Oximetry 100 99 100 07/22/20 14:50 07/22/20 14:55 07/22/20 15:00 Pulse Rate 68 65 66 Respiratory Rate 30 H 17 16 Blood Pressure Pulse Oximetry 100 100 100 07/22/20 15:01 07/22/20 15:05 07/22/20 15:10 Pulse Rate 67 65 65 Respiratory Rate 17 16 15 Blood Pressure 121/55 L Pulse Oximetry 100 99 99 07/22/20 15:13 07/22/20 15:15 07/22/20 15:20 Pulse Rate 65 65 65 Respiratory Rate 18 21 23 Blood Pressure 113/56 L Pulse Oximetry 100 99 99 07/22/20 15:25 07/22/20 15:30 07/22/20 15:35 Pulse Rate 63 64 62 Respiratory Rate 17 15 15 Blood Pressure 106/58 L Pulse Oximetry 99 98 98 07/22/20 15:40 07/22/20 15:45 07/22/20 15:50 Pulse Rate 66 65 64 Respiratory Rate 20 16 16 Blood Pressure Pulse Oximetry 99 99 99 07/22/20 15:55 07/22/20 16:00 07/22/20 16:05 Pulse Rate 65 65 70 Respiratory Rate 16 15 18 Blood Pressure 117/57 L Pulse Oximetry 99 99 99 07/22/20 16:10 07/22/20 16:15 07/22/20 16:20 Pulse Rate 64 65 66 Respiratory Rate 14 16 19 Blood Pressure Pulse Oximetry 99 99 99 07/22/20 16:25 07/22/20 16:30 07/22/20 16:35 Pulse Rate 70 66 65 Respiratory Rate 24 16 16 Blood Pressure 121/58 L Pulse Oximetry 100 99 99 07/22/20 16:40 07/22/20 16:45 07/22/20 16:50 Pulse Rate 67 65 72 Respiratory Rate 16 19 17 Blood Pressure Pulse Oximetry 100 99 100 07/22/20 16:55 07/22/20 17:00 07/22/20 17:05 Pulse Rate 66 69 66 Respiratory Rate 18 18 17 Blood Pressure 124/59 L Pulse Oximetry 99 100 99 07/22/20 17:10 07/22/20 17:15 07/22/20 17:20 Pulse Rate 67 68 68 Respiratory Rate 22 16 21 Blood Pressure Pulse Oximetry 99 99 99 07/22/20 17:25 07/22/20 17:30 07/22/20 17:35 Pulse Rate 67 70 71 Respiratory Rate 14 20 18 Blood Pressure 127/59 L Pulse Oximetry 99 100 99 MDM - Arrhythmia/Palpitations Lab Data Attestation: I reviewed the patient's lab results. Result diagrams: 07/22/20 10:00 07/22/20 10:00 Labs: Lab Results 07/22/20 07/22/20 07/22/20 Range/Units 10:00 10:00 10:00 WBC 14.3 H (4.5-11.0) X10^3/uL RBC 4.26 L (4.5-5.9) X10^6/uL Hgb 13.2 L (13.5-17.5) g/dL Hct 40.4 L (41-53) % MCV 94.9 (80-100) fL MCH 31.1 (26-34) PG MCHC 32.8 (30-36) % RDW 15.2 H (11.6-14.8) % Plt Count 352 (150-400) X10^3/uL Neut % (Auto) 75.8 H (50-75) % Lymph % (Auto) 16.1 L (25-40) % Pickett % (Auto) 6.0 (3-14) % Eos % (Auto) 1.2 L (2-4) % Baso % (Auto) 0.9 (0-2) % Neut # (Auto) 36516 H (2804-1937) /uL Lymph # (Auto) 2300 (9009-3310) /uL Pickett # (Auto) 900 (0-900) /uL Eos # (Auto) 200 (0-450) /uL Baso # (Auto) 100 (0-100) /uL PT 18.1 H (10.1-12.7) SECONDS INR 1.6 H (0.9-1.3) APTT 39 H (26.4-36.2) SECONDS Sodium 136 L (137-145) mmol/L Potassium 3.9 (3.4-5.1) mmol/L Chloride 100 (98-107) mmol/L Carbon Dioxide 27 (22-32) mmol/L BUN 30 H (9-20) mg/dL Creatinine 1.74 H (0.66-1.25) mg/dL Estimated GFR 38.1 L (>60) mL/min BUN/Creatinine Ratio 17.2 (6-22) Glucose 210 H (80-110) mg/dL Calcium 9.8 (8.4-10.2) mg/dL Magnesium 1.7 (1.6-2.3) mg/dL Total Bilirubin 1.3 (0.2-1.3) mg/dL AST 26 (17-59) IU/L ALT 17 (<50) IU/L Alkaline Phosphatase 92 (38-126) U/L Total Creatine Kinase 54 L (55-170) U/L CK-MB (CK-2) TNP CK-MB (CK-2) Rel Index TNP Troponin I 0.035 H (0.01-0.034) ng/mL Total Protein 7.7 (6.3-8.2) g/dL Albumin 4.3 (3.5-5.0) g/dL Globulin 3.4 (1.7-4.1) g/dL Albumin/Globulin Ratio 1.3 (1.0-2.8) TSH (0.47-4.68) uIU/mL COVID-19 PCR (Negative) 07/22/20 07/22/20 Range/Units 10:00 12:10 WBC (4.5-11.0) X10^3/uL RBC (4.5-5.9) X10^6/uL Hgb (13.5-17.5) g/dL Hct (41-53) % MCV (80-100) fL MCH (26-34) PG MCHC (30-36) % RDW (11.6-14.8) % Plt Count (150-400) X10^3/uL Neut % (Auto) (50-75) % Lymph % (Auto) (25-40) % Pickett % (Auto) (3-14) % Eos % (Auto) (2-4) % Baso % (Auto) (0-2) % Neut # (Auto) (4360-8764) /uL Lymph # (Auto) (8927-3333) /uL Pickett # (Auto) (0-900) /uL Eos # (Auto) (0-450) /uL Baso # (Auto) (0-100) /uL PT (10.1-12.7) SECONDS INR (0.9-1.3) APTT (26.4-36.2) SECONDS Sodium (137-145) mmol/L Potassium (3.4-5.1) mmol/L Chloride (98-107) mmol/L Carbon Dioxide (22-32) mmol/L BUN (9-20) mg/dL Creatinine (0.66-1.25) mg/dL Estimated GFR (>60) mL/min BUN/Creatinine Ratio (6-22) Glucose (80-110) mg/dL Calcium (8.4-10.2) mg/dL Magnesium (1.6-2.3) mg/dL Total Bilirubin (0.2-1.3) mg/dL AST (17-59) IU/L ALT (<50) IU/L Alkaline Phosphatase (38-126) U/L Total Creatine Kinase (55-170) U/L CK-MB (CK-2) CK-MB (CK-2) Rel Index Troponin I (0.01-0.034) ng/mL Total Protein (6.3-8.2) g/dL Albumin (3.5-5.0) g/dL Globulin (1.7-4.1) g/dL Albumin/Globulin Ratio (1.0-2.8) TSH 4.08 (0.47-4.68) uIU/mL COVID-19 PCR Negative (Negative) Imaging Data Chest x-ray: Radiologist's Impresson: [place] [address] XRay Report Signed Patient: Estella Parks [facility]#: [id number] : 2Acct:[id number] Age/Sex: 80 / MDate of Service: 07/22/20 Loc: ED Accession Number: [id number] Procedure: XR chest 1V Ordering Provider: Maggie Foote D.O. PROCEDURE: XR CHEST 1V INDICATIONS: Dysrhythmia TECHNIQUE: One view of the chest was acquired. COMPARISON: [facility], , XR CHEST 1V, 09/20/2018, 2:34. FINDINGS: Surgical changes and devices: None. Lungs and pleura: Lungs are clear. There is a calcified density in the left lung base, probably a pleural plaque. No pleural effusions or pneumothorax. Mediastinum: Mediastinal contours appear normal. Heart size is normal. Bones and chest wall: No suspicious bony lesions. Overlying soft tissues appear unremarkable. IMPRESSION: 1. No acute cardiopulmonary disease. 2. Suspect a calcified pleural plaque in the left lung base. Dictated by: Solitario Camarena M.D. on 07/22/2020 at 10:53 Approved by: Solitario Camarena M.D. on 07/22/2020 at 10:55 ECG Data Attestation: I personally reviewed and interpreted this ECG as follows: Interpretation: Telemetry/EKG from EMS notes a rapid rhythm, there does appear to possibly be he but difficult to tell this may just be a T-wave present. EKG 1., supraventricular tachycardia with a rate of 148, QRS 84 and QTC of 46. No ST elevation depression appreciated. On tele patient has had multiple episodes of what appeared to be V-tach on telemetry with wide complex, they could potentially be AFib with aberrancy. EKG 2. Status post cardioversion. Patient appears to have a bradycardia with a rate of 61, P waves do appear to be present for majority. Rate of 61, P are 17 4, QRS 86 and QTC of 414. Patient has inverted T-waves in [address] elevation or depression appreciated MDM Narrative Medical decision making narrative: Patient comes in in what appears to be atrial flutter with rapid ventricular response he is at 1:50 a.m. with a very regular rhythm making me suspect atrial flutter. Patient received adenosine 6 mg and route with EMS which slowed him very shortly and then his rhythm resumed. He was hypotensive in the field moderately improved to the a 80-90 range here in the emergency department. While we were evaluating patient and discussing possible cardioversion and his he has been anticoagulated regularly patient had several episodes that appeared to be sustained ventricular tachycardia or a wide complex tachycardia. Patient did not have loss of pulses or alteration in mental status. Patient had initially been started on Cardizem and given a bolus, he was then changed over to amiodarone and shortly thereafter some cardioverted. Patient tolerated the procedure well and appears to be in a sinus bradycardia although there is not always a P wave present. He had 1 episode of what appeared to be sustained V-tach after cardioversion and none further up till this time. His labs show a slight decrease in his renal function, patient has a white count of 14 but no other clear infectious signs, hemoglobin is 13 today, elevated, sodium is 136 with a potassium at 3.9, BUN is 30 and his creatinine is 1.74 was 1.3 on September of 2018. His troponin is 0.035, with a no rmal TSH. Chest x-ray does not show any acute findings. Case was discussed with cardiology who recommended transfer I spoke with the hospitalist who initially felt patient may be able to cared for here but he did talk to the sleeve tailor and it was decided to transfer. There was some delay as there finding of bed. Patient has continued to be stable here in the department during the rest of his stay. Critical Care Time Critical Care Time Critical Care Time: Yes Total Critical Care Time: 90 Attestation: The high probability of a clinically significant, sudden or life threatening deterioration of the [cardiac] system(s) required my full and direct attention, intervention and personal management. The aggregate critical care time was [90] minutes. This time is in addition to time spent performing reported procedures but includes the following: [x] Data Review and interpretation [x] Patient assessment and monitoring of vital signs [x] Documentation [x] Medication orders and management Discharge Plan Departure Patient Disposition: [facility] Clinical Impression: Atrial fibrillation with RVR, Ventricular tachycardia Discharge Date/Time: 07/22/20 17:48 Prescriptions: No Action furosemide 20 MG tablet 20 mg PO QDAY Qty: 0 RF: 0 furosemide 40 MG tablet 40 mg PO QDAY Qty: 0 RF: 0 spironolactone [Aldactone] 25 MG tablet 25 mg PO QDAY Qty: 0 RF: 0 Referrals: Fredrick Hilario MD [Primary Care Provider] -
[2020-07-22 10:25] LABS: Add Manual Diff / Slide Review NO; Basophils Absolute Auto 100 /uL (0-100); Basophils Percent Auto 0.9 % (0-2); Eosinophils Absolute Auto 200 /uL (0-450); Eosinophils Percent Auto 1.2 % (2-4); Hematocrit 40.4 % (41-53); Hemoglobin 13.2 g/dL (13.5-17.5); Lymphocytes Absolute Auto 2300 /uL (1100-4500); Lymphocytes Percent Auto 16.1 % (25-40); Mean Corpuscular HGB Conc 32.8 % (30-36); Mean Corpuscular Hemoglobin 31.1 PG (26-34); Mean Corpuscular Volume 94.9 fL (80-100); Monocytes Absolute Auto 900 /uL (0-900); Neutrophils Absolute Auto 10800 /uL (1500-7000); Neutrophils Percent Auto 75.8 % (50-75); Platelet Count 352 X10^3/uL (150-400); Red Blood Cell Count 4.26 X10^6/uL (4.5-5.9); Red Cell Distribution Width 15.2 % (11.6-14.8); White Blood Cell Count 14.3 X10^3/uL (4.5-11.0)
[2020-07-22 10:26] LABS: INR 1.6 (0.9-1.3); Prothrombin Time 18.1 SECONDS (10.1-12.7)
[2020-07-22] MEDS: SODIUM CHLORIDE 0.9% 1,000 ML 1000 ML IV (10:27)
[2020-07-22] MEDS: dilTIAZem 5 MG/ML SDV 10 MG IV ×2 (10:27→10:46)
[2020-07-22 10:29] LABS: PTT Partial Thromboplastin Tim 39 SECONDS (26.4-36.2)
[2020-07-22] MEDS: DILTIAZEM 125 MG/125 ML PIGGYBACK IV (10:31)
[2020-07-22 10:32] LABS: Alanine Aminotransferase 17 IU/L (<50); Albumin 4.3 g/dL (3.5-5.0); Albumin Globulin Ratio 1.3 (1.0-2.8); Alkaline Phosphatase 92 U/L (38-126); Aspartate Aminotransferase 26 IU/L (17-59); BUN Creatinine Ratio 17.2 (6-22); Bilirubin Total 1.3 mg/dL (0.2-1.3); Blood Urea Nitrogen 30 mg/dL (9-20); Calcium 9.8 mg/dL (8.4-10.2); Carbon Dioxide 27 mmol/L (22-32); Chloride 100 mmol/L (98-107); Creatine Kinase 54 U/L (55-170); Estimated Glomerular Filt Rate 38.1 mL/min (>60); Globulin 3.4 g/dL (1.7-4.1); Glucose 210 mg/dL (80-110); HEMOLYSIS 27 (0-50); Magnesium 1.7 mg/dL (1.6-2.3); Potassium 3.9 mmol/L (3.4-5.1); Sodium 136 mmol/L (137-145); Total Protein 7.7 g/dL (6.3-8.2)
[2020-07-22 10:43] LABS: Troponin I 0.035 ng/mL (0.01-0.034)
--- NOTE | 2020-07-22 10:52 | PC.NURSE ---
Pt noted to have runs of vtac x 2, both > 100 beats. Pt remained a/o x 4, pink,warm,dry and unaware of change in rhythm. Provider to bedside. pads on patient, 2nd line placed.
[2020-07-22] MEDS: SODIUM CHLORIDE 0.9% 1,000 ML 125 ML IV (11:02)
[2020-07-22] MEDS: ETOMIDATE 2 MG/ML 10 ML VIAL 20 MG IV (11:15)
[2020-07-22 11:30] LABS: Thyroid Stimulating Hormone 4.08 uIU/mL (0.47-4.68)
[2020-07-22] MEDS: AMIODARONE 150 MG/100 ML 600 MG IV (11:39)
[2020-07-22] MEDS: AMIODARONE 360 MG/200 ML PIGGYBACK 33.333 MG IV (11:44)
[2020-07-22] MEDS: APIXABAN 5 MG TABLET PO (12:42)
[2020-07-22 12:57] LABS: COVID19 -Nasal RAPID Negative (Negative)
--- NOTE | 2020-07-22 15:10 | PC.NURSE ---
Report given to ERNESTINA Leach at [facility] [phone]
[2020-07-22] MEDS: AMIODARONE 541 MG/300.56 ML PIGGYBACK 16.7 MG IV (17:22)
--- NOTE | 2020-08-05 10:39 | PC.NURSE ---
stop time of 167 ML NEXTERONE was 1710
== END 2020-07-22 17:48 | disposition short-term general hospital (02) ==
PROVIDERS: Emergency Provider Emergency Medicine; PCP Family Medicine
DX: I47.2 Ventricular tachycardia (principal); I95.9 Hypotension, unspecified; I48.91 Unspecified atrial fibrillation
CPT/HCPCS: 36415; 71045; 80053; 82550; 83735; 84443; 84484; 85025; 85610; 85730; 87635; 92960; 93005; 94770; 96365; 96366; 96375; 96376; 99152; 99153; 99285; 99291; 99292; J0282

== ENCOUNTER 2023-02-27 09:57 | Emergency (ER) | payer OTHER, SELFPAY ==
[2023-02-27] VITALS (46 sets, daily range): BP systolic 144–211; BP diastolic 65–111; PULSE 60–107; RESP 12–25; TEMP 36.6; O2SAT 95–100; BMI 30.1
--- NOTE | 2023-02-27 10:06 | DI.RAD.S_ITS ---
PROCEDURE: XR CHEST 1V INDICATIONS: chest pain TECHNIQUE: One view of the chest was acquired. COMPARISON: [facility], CR, XR CHEST 1V, 07/22/2020, 10:36. FINDINGS: Surgical changes and devices: Pacemaker Lungs and pleura: Lungs are clear. No pleural effusions or pneumothorax. Calcified left pleural plaque, as before. Mediastinum: Mediastinal contours appear normal. Cardiomegaly. Bones and chest wall: No suspicious bony lesions. Overlying soft tissues appear unremarkable. IMPRESSION: Cardiomegaly. No evidence acute pulmonary process. Dictated by: Nigel Richey M.D. on 02/27/2023 at 10:43 Approved by: Nigel Richey M.D. on 02/27/2023 at 10:45
[2023-02-27 10:17] LABS: Add Manual Diff / Slide Review NO; Basophils Absolute Auto 100 /uL (0-100); Basophils Percent Auto 0.7 % (0-2); Eosinophils Absolute Auto 200 /uL (0-450); Eosinophils Percent Auto 2.9 % (2-4); Hematocrit 42.7 % (41-53); Hemoglobin 14.4 g/dL (13.5-17.5); Lymphocytes Absolute Auto 1600 /uL (1100-4500); Lymphocytes Percent Auto 19.9 % (25-40); Mean Corpuscular HGB Conc 33.8 % (30-36); Mean Corpuscular Hemoglobin 29.3 PG (26-34); Mean Corpuscular Volume 86.8 fL (80-100); Monocytes Absolute Auto 900 /uL (0-900); Monocytes Percent Auto 10.3 % (3-14); Neutrophils Absolute Auto 5500 /uL (1500-7000); Neutrophils Percent Auto 66.2 % (50-75); Platelet Count 227 X10^3/uL (150-400); Red Blood Cell Count 4.91 X10^6/uL (4.5-5.9); Red Cell Distribution Width 14.2 % (11.6-14.8); White Blood Cell Count 8.2 X10^3/uL (4.5-11.0)
[2023-02-27 10:23] LABS: INR 1.7 (0.9-1.3); Prothrombin Time 19.1 SECONDS (10.1-12.7)
[2023-02-27 10:25] LABS: PTT Partial Thromboplastin Tim 38 SECONDS (26-36)
[2023-02-27 10:27] LABS: Alanine Aminotransferase 39 IU/L (<50); Albumin 4.2 g/dL (3.5-5.0); Albumin Globulin Ratio 1.3 (1.0-2.8); Alkaline Phosphatase 110 U/L (38-126); Aspartate Aminotransferase 43 IU/L (17-59); Bilirubin Total 1.3 mg/dL (0.2-1.3); Blood Urea Nitrogen 18 mg/dL (9-20); Calcium 9.8 mg/dL (8.4-10.2); Carbon Dioxide 28 mmol/L (22-32); Chloride 102 mmol/L (98-107); Creatine Kinase 36 U/L (55-170); Estimated Glomerular Filt Rate > 60 mL/min (>60); Globulin 3.3 g/dL (1.7-4.1); Glucose 119 mg/dL (80-110); HEMOLYSIS 36 (0-50); Lipase 190 U/L (23-300); Potassium 3.6 mmol/L (3.4-5.1); Sodium 140 mmol/L (137-145); Total Protein 7.5 g/dL (6.3-8.2)
[2023-02-27 10:39] LABS: Troponin I 0.015 ng/mL (0.01-0.034)
--- NOTE | 2023-02-27 10:58 | ED.ARRPALP ---
HPI - Arrhythmia/Palpitations General Chief Complaint: Arrhythmia/Palpitations Stated Complaint: high BP/Afib Time Seen by Provider: 02/27/23 10:45 Source: patient Mode of arrival: Ambulatory History of Present Illness HPI narrative: Patient here with daughter. Complains of feeling tired short of breath for the past 3 months. Denies any chest pain. No cough cold or congestion. Patient took his blood pressure yesterday and it was very high. He is not taken his blood pressure at home for over 8 months. Patient has history atrial fibrillation with past history of cardiac ablation and now AICD placement. Patient seen here in 2018 as well as 2023 cardioversion. Since then he is had a pacemaker and no cardioversion. Patient sees [facility] Dr. Mckinnon. Has not had any change in his medications. Blood pressure has improved since arrival. Patient is in no distress. Denies palpitations or chest pain. Patient remains on Eliquis. Does have history of CHF. Echocardiogram and heart catheterization July 2020. Heart catheterization are remarkable for any blockages. No stents placed. Ejection fraction 55%. Patient denies any swelling of the limbs or legs. No calf pain. Related Data Home Medications Medication Instructions Recorded Confirmed furosemide 20 mg tablet 20 mg PO QDAY ##0 10/15/16 allopurinol 300 mg tablet 300 mg PO 02/27/23 amiodarone 200 mg tablet 200 mg PO 02/27/23 apixaban 5 mg (74 tabs) tablets in 5 mg PO 02/27/23 a dose pack atorvastatin 80 mg tablet 80 mg PO 02/27/23 lisinopril 10 mg tablet 10 mg PO 02/27/23 metoprolol succinate 50 mg 50 mg PO 02/27/23 tablet,extended release 24 hr Allergies Allergy/AdvReac Type Severity Reaction Status Date / Time No Known Drug Allergies Allergy Verified 02/27/23 10:06 Review of Systems Review of Systems Narrative: GENERAL: negative chills, positive fatigue, malaise, negative fever, sweats. HEENT: negative sinus pain, ear pain, sore throat RESPIRATORY: negative dyspnea, cough CARDIOVASCULAR: negative chest pain, palpitations GASTROINTESTINAL: negative nausea, vomiting, abdominal pain : negative dysuria, frequency, hematuria MUSCULOSKELETAL: negative muscle or bony pain SKIN: negative rash, skin lesions NEUROLOGIC: negative weakness, numbness ROS Unobtainable: All systems reviewed & are unremarkable except as noted in HPI and below Patient History Medical History (Updated 02/27/23 @ 17:38 by Johnny Loza MD) Atrial fibrillation Essential hypertension with goal blood pressure less than 140/90 (12/06/15) Surgical History H/O cardiac radiofrequency ablation Status post hernia repair Social History Smoking Status: Never smoker Smoking Status: Never smoker alcohol intake frequency: holidays/special occasions only Substance Use Type: does not use Exam Narrative Exam Narrative: GENERAL: in no distress, not toxic not dyspneic HEAD: Normocephalic. EYES: Pupils equal round ENT: Mucous membranes moist. NECK: Trachea midline. CARDIOVASCULAR: Irregular Regular rate and rhythm RESPIRATORY: Clear to auscultation. Breath sounds equal bilaterally. No wheezes, rales, or rhonchi. GASTROINTESTINAL: Abdomen soft, non-tender EXTREMITIES: No gross deformities. No ankle edema NEURO: AOx4. SKIN: Warm and dry PSYCH: Not anxious, is cooperative Initial Vital Signs Initial Vital Signs: Vital Signs Pulse Oximetry 98 02/27/23 10:03 Procedures Cardioversion Time of Cardioversion: 14:30 Consent Signed: Yes Indication: Atrial fibrillation Stability: Stable Number of attempts (shocks): 2 Joules used: 50 Cardiac rhythm post-cardioversion: Atrial fibrillation Additional Comments: Repeat attempt at 75 joules without success. Still in atrial fibrillation Procedural Sedation Time of procedure: 14:29 Consent signed: Yes Time out performed: Yes Indication: cardioversion Presedation Evaluation: Patient is awake alert oriented x4 prior to sedation. He does understand indication reason for procedural sedation. ASA Class: I Mallampati Airway Classification: Class I Time of Last PO Intake: 17:00 Preparation: supervisor microwave applied, pulse oximeter, capnometry used, supplemental O2 applied, reversal agents at bedside, suction/airway equipment at bedside and IV secured IV Propofol dose (mg): 100 Intraservice time/total sedation time (min): 15 ED Sedation Level: Deep Patient Tolerated Procedure: Well and No complications Course Orders Ordered: Discontinued Medications Metoprolol Tartrate (Metoprolol Ir 25 Mg Tablet) 50 mg PO NOW ONE Stop: 02/27/23 17:32 Last Admin: 02/27/23 17:39 Dose: 50 mg Documented By: GAIL Propofol (Propofol 200 Mg/20 Ml Vial) 100 mg 1 mg/kg (100 mg) IV NOW ONE Stop: 02/27/23 14:08 Last Admin: 02/27/23 14:20 Dose: 100 mg Documented By: GAIL Vital Signs Vital signs: Vital Signs - 8 hr 02/27/23 10:46 02/27/23 10:47 02/27/23 10:47 Pulse Rate 67 63 Respiratory Rate 18 17 Blood Pressure 158/79 H Pulse Oximetry 99 98 Oxygen Delivery Method 02/27/23 11:00 02/27/23 11:02 02/27/23 11:02 Pulse Rate 67 76 Respiratory Rate 19 19 Blood Pressure 177/79 H Pulse Oximetry 99 97 Oxygen Delivery Method 02/27/23 11:30 02/27/23 11:45 02/27/23 11:45 Pulse Rate 82 64 Respiratory Rate 22 18 Blood Pressure 154/65 H Pulse Oximetry 97 98 Oxygen Delivery Method 02/27/23 12:00 02/27/23 12:01 02/27/23 12:01 Pulse Rate 66 68 Respiratory Rate 17 18 Blood Pressure 154/65 H Pulse Oximetry 98 98 Oxygen Delivery Method 02/27/23 12:27 02/27/23 12:27 02/27/23 12:30 Pulse Rate 69 Respiratory Rate 18 Blood Pressure 184/80 H 186/81 H Pulse Oximetry 98 Oxygen Delivery Method 02/27/23 12:30 02/27/23 14:40 02/27/23 12:45 Pulse Rate 75 68 75 Respiratory Rate 18 16 18 Blood Pressure Pulse Oximetry 99 100 Oxygen Delivery Method 02/27/23 13:00 02/27/23 13:01 02/27/23 13:01 Pulse Rate 64 66 Respiratory Rate 17 17 Blood Pressure 144/65 H Pulse Oximetry 98 98 Oxygen Delivery Method 02/27/23 13:15 02/27/23 14:11 02/27/23 14:12 Pulse Rate 68 76 Respiratory Rate 16 Blood Pressure Pulse Oximetry 98 98 95 Oxygen Delivery Method 02/27/23 14:12 02/27/23 14:15 02/27/23 14:16 Pulse Rate 78 68 Respiratory Rate Blood Pressure 163/79 H Pulse Oximetry 98 98 Oxygen Delivery Method 02/27/23 14:16 02/27/23 14:21 02/27/23 14:21 Pulse Rate 65 Respiratory Rate Blood Pressure 211/89 H 199/92 H Pulse Oximetry 97 Oxygen Delivery Method 02/27/23 14:28 02/27/23 14:28 02/27/23 14:30 Pulse Rate 107 H Respiratory Rate 22 Blood Pressure 144/99 H 160/83 H Pulse Oximetry 97 Oxygen Delivery Method 02/27/23 14:30 02/27/23 14:35 02/27/23 14:35 Pulse Rate 78 80 Respiratory Rate 22 22 Blood Pressure 144/78 H Pulse Oximetry 97 95 Oxygen Delivery Method 02/27/23 14:40 02/27/23 14:40 02/27/23 14:45 Pulse Rate 86 Respiratory Rate 21 Blood Pressure 168/69 H 175/74 H Pulse Oximetry 98 Oxygen Delivery Method 02/27/23 14:45 02/27/23 14:50 02/27/23 14:50 Pulse Rate 89 96 H Respiratory Rate 19 24 Blood Pressure 187/86 H 187/86 H Pulse Oximetry 97 97 Oxygen Delivery Method Room Air 02/27/23 14:20 02/27/23 14:25 02/27/23 14:30 Pulse Rate 64 107 H 78 Respiratory Rate 13 Blood Pressure 199/92 H 160/83 H Pulse Oximetry 98 98 97 Oxygen Delivery Method Room Air Room Air Room Air 02/27/23 14:35 02/27/23 14:40 02/27/23 14:45 Pulse Rate 80 86 89 Respiratory Rate 25 H 21 19 Blood Pressure 144/78 H 168/69 H 175/74 H Pulse Oximetry 95 98 97 Oxygen Delivery Method Room Air Room Air Room Air 02/27/23 15:00 02/27/23 15:00 02/27/23 15:15 Pulse Rate 94 H 105 H Respiratory Rate 19 12 Blood Pressure 177/84 H Pulse Oximetry 98 99 Oxygen Delivery Method 02/27/23 15:30 02/27/23 15:31 02/27/23 15:31 Pulse Rate 67 67 Respiratory Rate 17 17 Blood Pressure 173/74 H Pulse Oximetry 97 98 Oxygen Delivery Method 02/27/23 15:45 02/27/23 16:00 02/27/23 16:00 Pulse Rate 64 63 Respiratory Rate 17 19 Blood Pressure 174/77 H Pulse Oximetry 99 98 Oxygen Delivery Method 02/27/23 16:15 02/27/23 16:30 02/27/23 16:30 Pulse Rate 72 72 Respiratory Rate 20 20 Blood Pressure 188/84 H Pulse Oximetry 98 99 Oxygen Delivery Method 02/27/23 16:45 02/27/23 17:00 02/27/23 17:00 Pulse Rate 60 60 Respiratory Rate 21 23 Blood Pressure 190/78 H Pulse Oximetry 98 97 Oxygen Delivery Method 02/27/23 17:15 02/27/23 17:30 02/27/23 17:31 Pulse Rate 64 60 60 Respiratory Rate 21 21 22 Blood Pressure Pulse Oximetry 98 99 99 Oxygen Delivery Method 02/27/23 17:31 02/27/23 17:45 02/27/23 18:05 Pulse Rate 60 60 Respiratory Rate 23 18 Blood Pressure 176/77 H 176/77 H Pulse Oximetry 99 97 Oxygen Delivery Method Room Air 02/27/23 18:00 Pulse Rate 60 Respiratory Rate 24 Blood Pressure Pulse Oximetry 99 Oxygen Delivery Method MDM - Arrhythmia/Palpitations Lab Data 02/27/23 10:08 02/27/23 10:08 Labs: Lab Results 02/27/23 02/27/23 02/27/23 Range/Units 10:08 10:08 10:08 WBC 8.2 (4.5-11.0) X10^3/uL RBC 4.91 (4.5-5.9) X10^6/uL Hgb 14.4 (13.5-17.5) g/dL Hct 42.7 (41-53) % MCV 86.8 (80-100) fL MCH 29.3 (26-34) PG MCHC 33.8 (30-36) % RDW 14.2 (11.6-14.8) % Plt Count 227 (150-400) X10^3/uL Neut % (Auto) 66.2 (50-75) % Lymph % (Auto) 19.9 L (25-40) % Kimball % (Auto) 10.3 (3-14) % Eos % (Auto) 2.9 (2-4) % Baso % (Auto) 0.7 (0-2) % Neut # (Auto) 5500 (6895-5504) /uL Lymph # (Auto) 1600 (1028-6220) /uL Kimball # (Auto) 900 (0-900) /uL Eos # (Auto) 200 (0-450) /uL Baso # (Auto) 100 (0-100) /uL PT 19.1 H (10.1-12.7) SECONDS INR 1.7 H (0.9-1.3) APTT 38 H (26-36) SECONDS Sodium 140 (137-145) mmol/L Potassium 3.6 (3.4-5.1) mmol/L Chloride 102 (98-107) mmol/L Carbon Dioxide 28 (22-32) mmol/L BUN 18 (9-20) mg/dL Creatinine 1.06 (0.66-1.25) mg/dL Estimated GFR > 60 (>60) mL/min BUN/Creatinine Ratio 17.0 (6-22) Glucose 119 H (80-110) mg/dL Calcium 9.8 (8.4-10.2) mg/dL Magnesium 2.0 (1.6-2.3) mg/dL Total Bilirubin 1.3 (0.2-1.3) mg/dL AST 43 (17-59) IU/L ALT 39 (<50) IU/L Alkaline Phosphatase 110 (38-126) U/L Total Creatine Kinase 36 L (55-170) U/L CK-MB (CK-2) TNP CK-MB (CK-2) Rel Index TNP Troponin I 0.015 (0.01-0.034) ng/mL NT-Pro-B Natriuret Pep (<450) pg/mL Total Protein 7.5 (6.3-8.2) g/dL Albumin 4.2 (3.5-5.0) g/dL Globulin 3.3 (1.7-4.1) g/dL Albumin/Globulin Ratio 1.3 (1.0-2.8) Lipase 190 (23-300) U/L Chlamy pneumoniae PCR (Not Detect) Adenovirus (PCR) (Not Detect) B. pertussis DNA (PCR) (Not Detecte) B.parapertussis DNA PCR (Not Detecte) Coronavirus OC43 (PCR) (Not Detect) Coronavirus HKU1 (PCR) (Not Detect) Coronavirus 229E (PCR) (Not Detect) SARS-CoV-2 (PCR) (Not Detecte) Coronavirus NL63 (PCR) (Not Detect) Human Metapneumovir PCR (Not Detect) Influenza Type A (PCR) (Not Detect) Influenza Type B (PCR) (Not Detect) M. pneumoniae (PCR) (Not Detect) Parainfluenza 1 (PCR) (Not Detect) Parainfluenza 2 (PCR) (Not Detect) Parainfluenza 3 (PCR) (Not Detect) Parainfluenza 4 (PCR) (Not Detect) RSV (PCR) (Not Detect) Entero/Rhino (PCR) (Not Detect) 02/27/23 02/27/23 Range/Units 10:08 11:23 WBC (4.5-11.0) X10^3/uL RBC (4.5-5.9) X10^6/uL Hgb (13.5-17.5) g/dL Hct (41-53) % MCV (80-100) fL MCH (26-34) PG MCHC (30-36) % RDW (11.6-14.8) % Plt Count (150-400) X10^3/uL Neut % (Auto) (50-75) % Lymph % (Auto) (25-40) % Kimball % (Auto) (3-14) % Eos % (Auto) (2-4) % Baso % (Auto) (0-2) % Neut # (Auto) (8292-0337) /uL Lymph # (Auto) (8129-1926) /uL Kimball # (Auto) (0-900) /uL Eos # (Auto) (0-450) /uL Baso # (Auto) (0-100) /uL PT (10.1-12.7) SECONDS INR (0.9-1.3) APTT (26-36) SECONDS Sodium (137-145) mmol/L Potassium (3.4-5.1) mmol/L Chloride (98-107) mmol/L Carbon Dioxide (22-32) mmol/L BUN (9-20) mg/dL Creatinine (0.66-1.25) mg/dL Estimated GFR (>60) mL/min BUN/Creatinine Ratio (6-22) Glucose (80-110) mg/dL Calcium (8.4-10.2) mg/dL Magnesium (1.6-2.3) mg/dL Total Bilirubin (0.2-1.3) mg/dL AST (17-59) IU/L ALT (<50) IU/L Alkaline Phosphatase (38-126) U/L Total Creatine Kinase (55-170) U/L CK-MB (CK-2) CK-MB (CK-2) Rel Index Troponin I (0.01-0.034) ng/mL NT-Pro-B Natriuret Pep 2470 H (<450) pg/mL Total Protein (6.3-8.2) g/dL Albumin (3.5-5.0) g/dL Globulin (1.7-4.1) g/dL Albumin/Globulin Ratio (1.0-2.8) Lipase (23-300) U/L Chlamy pneumoniae PCR Not detected (Not Detect) Adenovirus (PCR) Not detected (Not Detect) B. pertussis DNA (PCR) Not detected (Not Detecte) B.parapertussis DNA PCR Not detected (Not Detecte) Coronavirus OC43 (PCR) Not detected (Not Detect) Coronavirus HKU1 (PCR) Not detected (Not Detect) Coronavirus 229E (PCR) Not detected (Not Detect) SARS-CoV-2 (PCR) Not detected (Not Detecte) Coronavirus NL63 (PCR) Not detected (Not Detect) Human Metapneumovir PCR Not detected (Not Detect) Influenza Type A (PCR) Not detected (Not Detect) Influenza Type B (PCR) Not detected (Not Detect) M. pneumoniae (PCR) Not detected (Not Detect) Parainfluenza 1 (PCR) Not detected (Not Detect) Parainfluenza 2 (PCR) Not detected (Not Detect) Parainfluenza 3 (PCR) Not detected (Not Detect) Parainfluenza 4 (PCR) Not detected (Not Detect) RSV (PCR) Not detected (Not Detect) Entero/Rhino (PCR) Not detected (Not Detect) Urine Dip Bedside Urine Glucose Negative Bedside Urine Bilirubin - Negative Bedside Urine Ketone - Negative Urine Specific [place] 1.015 Bedside Urine Occult Blood - Negative Bedside Urine pH 6.0 Bedside Urine Protein - Negative Bedside Urine Urobilinogen - Negative Bedside Urine Nitrite - Negative Bedside Urine Leukocytes - Negative Esterase Imaging Data Chest x-ray: Radiologist's Impresson: [address] [address] XRay Report Signed Patient: Estella Parks MR#: [id number] : 1940 Acct:[id number] Age/Sex: 83 / M Date of Service: 02/27/23 Loc: ED Accession Number: [id number] ?? Procedure: XR chest 1V Ordering Provider: Johnny Loza MD PROCEDURE:? XR CHEST 1V ? INDICATIONS:? chest pain ? TECHNIQUE:? One view of the chest was acquired.? ? COMPARISON:? [facility], CR, XR CHEST 1V, 07/22/2020, 10:36. ? FINDINGS:? ? Surgical changes and devices:? Pacemaker ? Lungs and pleura:? Lungs are clear.? No pleural effusions or pneumothorax.? Calcified left pleural plaque, as before. ? Mediastinum:? Mediastinal contours appear normal.? Cardiomegaly. ? Bones and chest wall:? No suspicious bony lesions.? Overlying soft tissues appear unremarkable.? ? IMPRESSION:? Cardiomegaly. No evidence acute pulmonary process. ? ? ? Dictated by: Nigel Richey M.D. on 02/27/2023 at 10:43 ? ? Approved by: Nigel Richey M.D. on 02/27/2023 at 10:45 ? [facility] Narrative Medical decision making narrative: Patient here with daughter. Complains of feeling tired short of breath for the past 3 months. Denies any chest pain. No cough cold or congestion. Patient took his blood pressure yesterday and it was very high. He is not taken his blood pressure at home for over 8 months. Patient has history atrial fibrillation with past history of cardiac ablation and now AICD placement. Patient seen here in 2018 as well as 2023 cardioversion. Since then he is had a pacemaker and no cardioversion. Patient sees [facility] Dr. Mckinnon. Has not had any change in his medications. Blood pressure has improved since arrival. Patient is in no distress. Denies palpitations or chest pain. Patient remains on Eliquis. Does have history of CHF. Echocardiogram and heart catheterization July 2020. Heart catheterization are remarkable for any blockages. No stents placed. Ejection fraction 55%. Patient denies any swelling of the limbs or legs. No calf pain. After history and exam CBC CMP troponin PT INR BNP chest x-ray EKG [facility] CC: High blood pressure/dyspnea Complicating co-morbidities: Pacemaker/AFib/CHF Data collected from: Patient Medical records reviewed: ER visits here 2019 and 2019 for cardioversion Differential considered: Includes but not limited to CHF pneumonia arrhythmia amiodarone toxicity Exam documented above, pertinent findings include: Irregular rhythm Lab Test results independently reviewed as above. Pertinent findings: WBC 8.2 hemoglobin 14.4 platelets 227 PT 19.1 INR 1.7 PTT 38 sodium 140 potassium 3.6 BUN 18 creatinine 1.06 GFR greater than 60 troponin 0.015 Independently reviewed EKG ventricular pacing with PVC Imaging studies independently reviewed: Chest x-ray no acute process Consultations: 11:00 a.m.. Spoke with cardiology dr pope, no antiarrhythmics to be given, no cardioversion. I did review EKG and rhythm with him. Patient has ventricular pacing. Likely PVC between. Mostly one-to-one, recommends admitting patient for observation and rule out amiodarone toxicity. Rule out congestive heart failure. 2:18 p.m.. Pacemaker rvda master certified rv technician is here at bedside. He has spoken with Dr. Pope, marine equipment test engineer, now would like patient to be cardioverted admitted and repeat echocardiogram. And get diuresis 2:50 p.m.. I spoke with Dr. pope again. Unsuccessful cardioversion, he now instructed for patient to be transferred to [facility] to see Dr. Mckinnon 3:22 p.m.. Spoke with [facility] Dr. Monroe, at this time he will not accept patient, does not see indication for transfer as patient has continuity of care with [facility] 3:[address] Mckinnon, patient's cardiology provider, at this time heart rate is 62. Patient can be admitted here at this hospital for diuresis and echocardiogram in the morning. He will see patient outpatient basis for elective cardioversion. Patient to have echocardiogram after diuresis. Other option is for patient to go home and double up his diuretic medication 5:00 p.[address].. I spoke with Dr. Rene, hospitalist here, will see patient for evaluation before admitting 5:30 p.[address].. Hospitalist, Dr. Rene has seen patient and since patient is not requiring supplemental oxygen. Does not need urgent echocardiogram. He states patient can be discharged home and take double his diuretic medication. 6:[address] Mckinnon has given further instructions to give to patient, he is to take for his high blood pressure lisinopril 20 mg twice a day Treatments: Procedural sedation cardioversion Re-evaluations: 2:19 p.m.. Spoke with patient for cardioversion risks and benefits and consent. He agrees with this plan. Understands as he is had this in the past. And understands will be admitted. 3:00 p.m.. I did update patient and he does understand needs to be transferred because cardioversion was unsuccessful. He is awake alert oriented x4. No altered mental status. 5:35 p.m.. I did review results with patient and daughter. He is pleased to go home after discussion with hospitalist and options from Cardiology. Patient understands he will take his diuretic twice a day. He will also take metoprolol twice a day. Reviewed with them the likely, which is common, patient's will require changes in medications to control blood pressure or there rate. Discussion: Appropriate for discharge home. I have discussed with cardiology numerous times as well as hospitalist for disposition and treatment plan. Patient is stable at this time. Not requiring supplemental oxygen. Blood pressure has improved. Reviewed results and treatment plan for patient and daughter, they agree with discharge home. Patient desires to go home. Return precautions reviewed with patient and family. They desire discharge home. Blood pressure 176/77 and trending downward. Patient received metoprolol shortly before discharge Diagnosis: Atrial fibrillation/CHF Critical Care Time Critical Care Time Attestation: Critical Care Time 35 minutes: Critical care time is separate from other billable procedures. This critical care time includes consultation with family and other consulting doctors, review of records, and interpretation of data from labs, EKGs, imaging, etc. Discharge Plan Departure Patient Disposition: Home Clinical Impression: Atrial fibrillation, CHF (congestive heart failure) Instructions: DI for Heart Failure, DI for Atrial Fibrillation, DI for Moderate Sedation Activity Restrictions/Additional Instructions: Please continue home medications. However, you will need to take your furosemide twice a day instead of once a day. In addition you will take your lisinopril 20 mg twice a day.. Your cardiology provider will be calling you for office re-evaluation. You may continue your other medications. Return if worse if any questions or concerns if any trouble breathing or any dizziness or near fainting. No driving or operating machinery today. Prescriptions: No Action furosemide 20 MG tablet 20 mg PO QDAY Qty: 0 atorvastatin 80 mg Tablet 80 mg PO metoprolol succinate 50 mg Tablet Extended Release 24 Hr 50 mg PO allopurinol 300 mg Tablet 300 mg PO amiodarone 200 mg Tablet 200 mg PO lisinopril 10 mg Tablet 10 mg PO apixaban 5 mg (74 tabs) Tablets,Dose Pack 5 mg PO Referrals: Fredrick Hilario MD [Primary Care Provider] - Stand Alone Forms: Patient Portal/API
[2023-02-27 11:23] LABS: NT-proBNP (BNP-Adult 18+) 2470 pg/mL (<450)
--- NOTE | 2023-02-27 11:35 | PC.NURSE ---
Med list today is unconfirmed for frequency due to pt and family only knowing dosage but unclear on frequency.
[2023-02-27 12:19] LABS: Adenovirus Not Detected (Not Detect); B. parapertussis Not Detected (Not Detecte); Bordetella pertussis Not Detected (Not Detecte); Chlamydophila pneumoniae Not Detected (Not Detect); Coronavirus 229E Not Detected (Not Detect); Coronavirus HKU1 Not Detected (Not Detect); Coronavirus NL 63 Not Detected (Not Detect); Coronavirus OC43 Not Detected (Not Detect); Human Metapneumovirus Not Detected (Not Detect); Human Rhinovirus/Enterovirus Not Detected (Not Detect); Influenza A Not Detected (Not Detect); Influenza B Not Detected (Not Detect); Mycoplasma pneumoniae Not Detected (Not Detect); Parainfluenza Virus 1 Not Detected (Not Detect); Parainfluenza Virus 2 Not Detected (Not Detect); Parainfluenza Virus 3 Not Detected (Not Detect); Parainfluenza Virus 4 Not Detected (Not Detect); Respiratory Syncytial Virus Not Detected (Not Detect); SARS- CoV-2 Not Detected (Not Detecte)
--- NOTE | 2023-02-27 12:40 | PC.NURSE ---
Unable to interrogate pacemaker, called [employer], pt has a newer pacemaker that transmits via bethel on his i-Phone. Pt did not bring iphone with him to the ED. Area rep for [employer] is on her way to interrogate pacemaker. Physician aware.
--- NOTE | 2023-02-27 12:46 | PC.NURSE ---
Spoke with Abdelrahman ([employer] heat treat technician) at [facility] re: pts pacemaker report from yesterday. States the patient called [facility] [facility] to report arrhythmia and Abdelrahman ([employer]) had pt send thepts i-phone bethel report to them. Celia states report showed a-fib. Physician aware.
--- NOTE | 2023-02-27 13:46 | PC.NURSE ---
[employer] rep here to interrogate pacemaker. Rep is advising physician of results at this time. Report printed and placed in paper record.
[2023-02-27] MEDS: propofoL 200 MG/20 ML VIAL 100 MG IV (14:20)
--- NOTE | 2023-02-27 14:50 | PC.NURSE ---
Pt cardioverted, however unsuccessfull. Will transfer to [facility] for higher level of care.
--- NOTE | 2023-02-27 16:02 | PC.NURSE ---
Daughter at the bedside. Updated pt/family on the new plan to be admitted to [facility], instead of [place]. Pt verbalized understanding.
--- NOTE | 2023-02-27 17:13 | PM.CN ---
History of Present Illness Consult details Date Patient Seen: 02/27/23 Time Patient Seen: 17:14 Chief complaint: high BP/Afib Reason for consult: shortness of breath, afib Requesting provider: Johnny Loza Narrative: This is an 83 year old male with PMH of chronic atrial fibrillation, s/p ablation and PPM/AICD placement, HTN, chronic diastolic heart failure who presented with orthopnea and hypertension to the emergency room. Patient states over the last few months he has had mild orthopnea, this is usually brought on by post nasal drip with clear white mucous that feels like it gets stuck in his throat. He denies chest pain, palpitations, LE edema. He has had dyspnea on exertion, struggles with going uphill but can usually walk about a block and a half. He was also concerned because his BP was quite high at home recently. His PCP is through the [place] and his plate grainer is Dr. Mckinnon, he is not completely sure of his medications but states he had his furosemide cut from 1.5 pills a day to 1 pill a day a few months ago. In the emergency room, patient was hypertensive but the remainder of his vitals were unremarkable. Labs were notable for elevated proBNP at 2470. Troponin was 0.015. ER attempted cardioversion after discussion with cardiology but he was unable to control atrial rate, on the monitor pulse was in the 60s. CXR was unremarkable. Emergency room consulted for admission for diuresis and echocardiogram, however given patients stability and lack of acute symptoms, admission to the hospital is not necessary at this time and outpatient diuresis can be attempted. Meds Home Medications and Allergies Home Medications Medication Instructions Recorded Confirmed Type furosemide 20 mg tablet 20 mg PO QDAY ##0 10/15/16 History allopurinol 300 mg tablet 300 mg PO 02/27/23 History amiodarone 200 mg tablet 200 mg PO 02/27/23 History apixaban 5 mg (74 tabs) tablets in 5 mg PO 02/27/23 History a dose pack atorvastatin 80 mg tablet 80 mg PO 02/27/23 History lisinopril 10 mg tablet 10 mg PO 02/27/23 History metoprolol succinate 50 mg 50 mg PO 02/27/23 History tablet,extended release 24 hr Allergies Allergy/AdvReac Type Severity Reaction Status Date / Time No Known Drug Allergies Allergy Verified 02/27/23 10:06 Review of Systems Review of Systems Narrative: All other systems reviewed with the patient and are negative unless otherwise stated. Exam Vital Signs (past 8 hours): - 02/27/23 10:06 02/27/23 10:03 02/27/23 10:04 Temperature 97.9 F Pulse Rate 92 H 78 Respiratory Rate 23 18 Blood Pressure 186/111 H Pulse Oximetry 99 98 99 Oxygen Delivery Method Room Air 02/27/23 10:04 02/27/23 10:46 02/27/23 10:47 Temperature Pulse Rate 67 63 Respiratory Rate 18 17 Blood Pressure 186/111 H Pulse Oximetry 99 98 Oxygen Delivery Method 02/27/23 10:47 02/27/23 11:00 02/27/23 11:02 Temperature Pulse Rate 67 76 Respiratory Rate 19 19 Blood Pressure 158/79 H Pulse Oximetry 99 97 Oxygen Delivery Method 02/27/23 11:02 02/27/23 11:30 02/27/23 11:45 Temperature Pulse Rate 82 64 Respiratory Rate 22 18 Blood Pressure 177/79 H Pulse Oximetry 97 98 Oxygen Delivery Method 02/27/23 11:45 02/27/23 12:00 02/27/23 12:01 Temperature Pulse Rate 66 68 Respiratory Rate 17 18 Blood Pressure 154/65 H Pulse Oximetry 98 98 Oxygen Delivery Method 02/27/23 12:01 02/27/23 12:27 02/27/23 12:27 Temperature Pulse Rate 69 Respiratory Rate 18 Blood Pressure 154/65 H 184/80 H Pulse Oximetry 98 Oxygen Delivery Method 02/27/23 12:30 02/27/23 12:30 02/27/23 14:40 Temperature Pulse Rate 75 68 Respiratory Rate 18 16 Blood Pressure 186/81 H Pulse Oximetry 99 Oxygen Delivery Method 02/27/23 12:45 02/27/23 13:00 02/27/23 13:01 Temperature Pulse Rate 75 64 Respiratory Rate 18 17 Blood Pressure 144/65 H Pulse Oximetry 100 98 Oxygen Delivery Method 02/27/23 13:01 02/27/23 13:15 02/27/23 14:11 Temperature Pulse Rate 66 68 Respiratory Rate 17 16 Blood Pressure Pulse Oximetry 98 98 98 Oxygen Delivery Method 02/27/23 14:12 02/27/23 14:12 02/27/23 14:15 Temperature Pulse Rate 76 78 Respiratory Rate Blood Pressure 163/79 H Pulse Oximetry 95 98 Oxygen Delivery Method 02/27/23 14:16 02/27/23 14:16 02/27/23 14:21 Temperature Pulse Rate 68 65 Respiratory Rate Blood Pressure 211/89 H Pulse Oximetry 98 97 Oxygen Delivery Method 02/27/23 14:21 02/27/23 14:28 02/27/23 14:28 Temperature Pulse Rate 107 H Respiratory Rate 22 Blood Pressure 199/92 H 144/99 H Pulse Oximetry 97 Oxygen Delivery Method 02/27/23 14:30 02/27/23 14:30 02/27/23 14:35 Temperature Pulse Rate 78 80 Respiratory Rate 22 22 Blood Pressure 160/83 H Pulse Oximetry 97 95 Oxygen Delivery Method 02/27/23 14:35 02/27/23 14:40 02/27/23 14:40 Temperature Pulse Rate 86 Respiratory Rate 21 Blood Pressure 144/78 H 168/69 H Pulse Oximetry 98 Oxygen Delivery Method 02/27/23 14:45 02/27/23 14:45 02/27/23 14:50 Temperature Pulse Rate 89 96 H Respiratory Rate 19 24 Blood Pressure 175/74 H 187/86 H Pulse Oximetry 97 97 Oxygen Delivery Method Room Air 02/27/23 14:50 02/27/23 14:20 02/27/23 14:25 Temperature Pulse Rate 64 107 H Respiratory Rate Blood Pressure 187/86 H 199/92 H Pulse Oximetry 98 98 Oxygen Delivery Method Room Air Room Air 02/27/23 14:30 02/27/23 14:35 02/27/23 14:40 Temperature Pulse Rate 78 80 86 Respiratory Rate 13 25 H 21 Blood Pressure 160/83 H 144/78 H 168/69 H Pulse Oximetry 97 95 98 Oxygen Delivery Method Room Air Room Air Room Air 02/27/23 14:45 02/27/23 15:00 02/27/23 15:00 Temperature Pulse Rate 89 94 H Respiratory Rate 19 19 Blood Pressure 175/74 H 177/84 H Pulse Oximetry 97 98 Oxygen Delivery Method Room Air 02/27/23 15:15 02/27/23 15:30 02/27/23 15:31 Temperature Pulse Rate 105 H 67 67 Respiratory Rate 12 17 17 Blood Pressure Pulse Oximetry 99 97 98 Oxygen Delivery Method 02/27/23 15:31 02/27/23 15:45 Temperature Pulse Rate 64 Respiratory Rate 17 Blood Pressure 173/74 H Pulse Oximetry 99 Oxygen Delivery Method Oxygen Delivery Method Room Air Narrative Exam Narrative: General:? Patient is well developed and well nourished, in no distress at this time. HEENT:? Normocephalic, atraumatic, extraocular muscles intact, oral pharynx is clear and mucous membranes are moist. Neck: supple and symmetric, trachea is midline, no cervical adenopathy. Negative for JVD Chest:? Normal AP diameter and contour without kyphoscoliosis, no tachypnea, equal chest rise bilaterally. Lungs:? CTA b/l no wheezing rhonchi or rales. Cardio:?RRR no m/r/g. (paced on monitor) Abdomen: S NT ND. No CVA tenderness. Musculoskeletal:? Muscle strength and tone are equal within normal limits, no deformity. Extremities: No edema or joint effusions. No cyanosis or clubbing. Skin:? Pale,? Warm to touch,dry and intact without rashes, ulcerations or petechiae.? Neuro:? Alert and orientated x3,? sensation to touch intact in all extremities, no gross deficits noted of cranial nerves. Psych:? Patient has a well-kept appearance, appropriate affect, mental status attitude thought context and judgment are appropriate for age. Objective Labs 02/27/23 10:08 02/27/23 10:08 Labs: Laboratory Results - last 24 hr 02/27/23 02/27/23 02/27/23 10:08 10:08 10:08 WBC 8.2 RBC 4.91 Hgb 14.4 Hct 42.7 MCV 86.8 MCH 29.3 MCHC 33.8 RDW 14.2 Plt Count 227 Neut % (Auto) 66.2 Lymph % (Auto) 19.9 L [place] % (Auto) 10.3 Eos % (Auto) 2.9 Baso % (Auto) 0.7 Neut # (Auto) 5500 Lymph # (Auto) 1600 [place] # (Auto) 900 Eos # (Auto) 200 Baso # (Auto) 100 PT 19.1 H INR 1.7 H APTT 38 H Sodium 140 Potassium 3.6 Chloride 102 Carbon Dioxide 28 BUN 18 Creatinine 1.06 Estimated GFR > 60 BUN/Creatinine Ratio 17.0 Glucose 119 H Calcium 9.8 Magnesium 2.0 Total Bilirubin 1.3 AST 43 ALT 39 Alkaline Phosphatase 110 Total Creatine Kinase 36 L CK-MB (CK-2) TNP CK-MB (CK-2) Rel Index TNP Troponin I 0.015 NT-Pro-B Natriuret Pep Total Protein 7.5 Albumin 4.2 Globulin 3.3 Albumin/Globulin Ratio 1.3 Lipase 190 Chlamy pneumoniae PCR Adenovirus (PCR) B. pertussis DNA (PCR) B.parapertussis DNA PCR Coronavirus OC43 (PCR) Coronavirus HKU1 (PCR) Coronavirus 229E (PCR) SARS-CoV-2 (PCR) Coronavirus NL63 (PCR) Human Metapneumovir PCR Influenza Type A (PCR) Influenza Type B (PCR) M. pneumoniae (PCR) Parainfluenza 1 (PCR) Parainfluenza 2 (PCR) Parainfluenza 3 (PCR) Parainfluenza 4 (PCR) RSV (PCR) Entero/Rhino (PCR) 02/27/23 02/27/23 10:08 11:23 WBC RBC Hgb Hct MCV MCH MCHC RDW Plt Count Neut % (Auto) Lymph % (Auto) [place] % (Auto) Eos % (Auto) Baso % (Auto) Neut # (Auto) Lymph # (Auto) [place] # (Auto) Eos # (Auto) Baso # (Auto) PT INR APTT Sodium Potassium Chloride Carbon Dioxide BUN Creatinine Estimated GFR BUN/Creatinine Ratio Glucose Calcium Magnesium Total Bilirubin AST ALT Alkaline Phosphatase Total Creatine Kinase CK-MB (CK-2) CK-MB (CK-2) Rel Index Troponin I NT-Pro-B Natriuret Pep 2470 H Total Protein Albumin Globulin Albumin/Globulin Ratio Lipase Chlamy pneumoniae PCR Not detected Adenovirus (PCR) Not detected B. pertussis DNA (PCR) Not detected B.parapertussis DNA PCR Not detected Coronavirus OC43 (PCR) Not detected Coronavirus HKU1 (PCR) Not detected Coronavirus 229E (PCR) Not detected SARS-CoV-2 (PCR) Not detected Coronavirus NL63 (PCR) Not detected Human Metapneumovir PCR Not detected Influenza Type A (PCR) Not detected Influenza Type B (PCR) Not detected M. pneumoniae (PCR) Not detected Parainfluenza 1 (PCR) Not detected Parainfluenza 2 (PCR) Not detected Parainfluenza 3 (PCR) Not detected Parainfluenza 4 (PCR) Not detected RSV (PCR) Not detected Entero/Rhino (PCR) Not detected PFSH Medical History (Updated 02/27/23 @ 17:38 by Johnny Loza MD) Atrial fibrillation Essential hypertension with goal blood pressure less than 140/90 (12/06/15) Surgical History H/O cardiac radiofrequency ablation Status post hernia repair Tobacco & Substance Use Smoking Status: Never smoker Assessment & Plan Assessment & Plan narrative: This is an 83 year old male with PMH of chronic atrial fibrillation, s/p ablation and PPM/AICD placement, HTN, chronic diastolic heart failure who presented with orthopnea and hypertension to the emergency room. Given stability of his vital signs currently along with the potential for only a very mild volume overload based on history and exam, I recommend outpatient management with increase in his home furosemide and further follow up with PCP and cardiology as an outpatient. I further question whether there is true orthopnea, as he has a clear CXR, no leg edema, and predominantly complains of post nasal drip leading to his symptoms. There are no current indications for admission for his atrial fibrillation or acute on chronic heart failure at this time. I did discuss with the patient and his family at bedside to double his home diuretic dose which may help with his elevated blood pressures given that it had been reduced and may be contributing to his symptoms. They will contact his cardiology group and PCP office in the morning for outpatient scheduling. Diagnoses: 1. Chronic atrial fibrillation on AC s/p PPM/AICD placement. 2. Chronic diastoilc heart failure, possible acute on chronic but less likely 3. Hypertensive urgency Code: Full, surrogate is patient's spouse Dispo: discharge home with increased furosemide dosing. No other acute changes recommended. Follow up as soon as possible with cardiology and PCP for continued BP and afib management. Discussed with Patient, family, and ER provider. Reviewed patient's ER documentation, labs, and imaging. I have utilized all available immediate resources to obtain, update, or review the patient's current medications.
[2023-02-27] MEDS: METOPROLOL IR 25 MG TABLET 50 MG PO (17:39)
== END 2023-02-27 18:06 | disposition home or self-care (01) ==
PROVIDERS: Emergency Provider Emergency Medicine; PCP Family Medicine
DX: I48.91 Unspecified atrial fibrillation (principal); I50.9 Heart failure, unspecified; R07.9 Chest pain, unspecified; I10 Essential (primary) hypertension; Z95.0 Presence of cardiac pacemaker; Z79.01 Long term (current) use of anticoagulants; Z20.822 Contact with and (suspected) exposure to COVID-19
CPT/HCPCS: 36415; 71045; 80053; 81003; 82550; 83690; 83735; 83880; 84484; 85025; 85610; 85730; 87633; 92960; 93005; 99152; 99285; 99291; J2704

== ENCOUNTER → 2023-03-20 14:34 | Outpatient (CLI) | payer OTHER, SELFPAY ==
[2023-03-20 17:48] LABS: Free T4, Direct Thyroxine 5.08 ng/dL (0.78-2.19)
[2023-03-20 18:10] LABS: Thyroid Stimulating Hormone < 0.015 uIU/mL (0.47-4.68)
== END ==
PROVIDERS: Referring Provider Physician Assistant; Visit Provider Physician Assistant
DX: E05.90 Thyrotoxicosis, unspecified without thyrotoxic crisis or storm (principal)
CPT/HCPCS: 36415; 84439; 84443

== ENCOUNTER → 2023-04-08 12:30 | Outpatient (CLI) | payer OTHER, SELFPAY ==
[2023-04-08 16:22] LABS: Blood Urea Nitrogen 22 mg/dL (9-20); Calcium 9.5 mg/dL (8.4-10.2); Carbon Dioxide 30 mmol/L (22-32); Chloride 98 mmol/L (98-107); Estimated Glomerular Filt Rate > 60 mL/min (>60); Glucose 160 mg/dL (80-110); HEMOLYSIS < 15 (0-50); Potassium 4.2 mmol/L (3.4-5.1); Sodium 137 mmol/L (137-145)
== END ==
PROVIDERS: Referring Provider Internal Medicine Cardiovascular Disease; Visit Provider Internal Medicine Cardiovascular Disease
DX: I48.0 Paroxysmal atrial fibrillation (principal)
CPT/HCPCS: 36415; 80048

== ENCOUNTER → 2023-06-26 09:21 | Outpatient (CLI) | payer OTHER, SELFPAY ==
[2023-06-26 10:32] LABS: Free T4, Direct Thyroxine 0.75 ng/dL (0.78-2.19)
[2023-06-26 10:46] LABS: Thyroid Stimulating Hormone 42.9 uIU/mL (0.47-4.68)
== END ==
PROVIDERS: Referring Provider Internal Medicine Cardiovascular Disease; Visit Provider Internal Medicine Cardiovascular Disease
DX: I48.0 Paroxysmal atrial fibrillation (principal)
CPT/HCPCS: 36415; 84439; 84443

== ENCOUNTER → 2024-02-18 14:42 | Outpatient (CLI) | payer OTHER, SELFPAY ==
[2024-02-18 16:32] LABS: BUN Creatinine Ratio 30.2 (6-22); Blood Urea Nitrogen 35 mg/dL (9-20); Calcium 9.3 mg/dL (8.4-10.2); Carbon Dioxide 27 mmol/L (22-32); Chloride 107 mmol/L (98-107); Estimated Glomerular Filt Rate > 60 mL/min (>60); Glucose 164 mg/dL (80-110); Potassium 4.8 mmol/L (3.4-5.1); Sodium 141 mmol/L (137-145)
[2024-02-18 17:15] LABS: HEMOLYSIS 61 (0-50)
== END ==
PROVIDERS: Referring Provider Internal Medicine Cardiovascular Disease; Visit Provider Internal Medicine Cardiovascular Disease
DX: I48.0 Paroxysmal atrial fibrillation (principal)
CPT/HCPCS: 36415; 80048

== ENCOUNTER → 2024-04-30 06:56 | Outpatient (CLI) | payer OTHER, SELFPAY ==
[2024-04-30 07:46] LABS: Add Manual Diff / Slide Review NO; Basophils Absolute Auto 0 /uL (0-100); Basophils Percent Auto 0.6 % (0-2); Eosinophils Absolute Auto 100 /uL (0-450); Eosinophils Percent Auto 1.5 % (2-4); Hematocrit 46.1 % (41-53); Hemoglobin 15.3 g/dL (13.5-17.5); Lymphocytes Absolute Auto 1300 /uL (1100-4500); Lymphocytes Percent Auto 18.9 % (25-40); Mean Corpuscular HGB Conc 33.2 % (30-36); Mean Corpuscular Hemoglobin 30.1 PG (26-34); Mean Corpuscular Volume 90.7 fL (80-100); Monocytes Absolute Auto 800 /uL (0-900); Monocytes Percent Auto 11.5 % (3-14); Neutrophils Absolute Auto 4500 /uL (1500-7000); Neutrophils Percent Auto 67.5 % (50-75); Platelet Count 195 X10^3/uL (150-400); Red Blood Cell Count 5.08 X10^6/uL (4.5-5.9); Red Cell Distribution Width 16.3 % (11.6-14.8); White Blood Cell Count 6.7 X10^3/uL (4.5-11.0)
[2024-04-30 08:09] LABS: BUN Creatinine Ratio 22.7 (6-22); Blood Urea Nitrogen 30 mg/dL (9-20); Calcium 9.3 mg/dL (8.4-10.2); Carbon Dioxide 30 mmol/L (22-32); Chloride 105 mmol/L (98-107); Estimated Glomerular Filt Rate 54 mL/min (>60); Glucose 109 mg/dL (80-110); HEMOLYSIS < 15 (0-50); Potassium 4.2 mmol/L (3.4-5.1); Sodium 139 mmol/L (137-145)
== END ==
PROVIDERS: Referring Provider Nurse Practitioner Family; Visit Provider Nurse Practitioner Family
DX: I48.0 Paroxysmal atrial fibrillation (principal)
CPT/HCPCS: 36415; 80048; 85025

== ENCOUNTER → 2024-07-15 11:41 | Outpatient (CLI) | payer OTHER, SELFPAY ==
[2024-07-15 12:55] LABS: Add Manual Diff / Slide Review NO; Basophils Absolute Auto 0 /uL (0-100); Basophils Percent Auto 0.3 % (0-2); Eosinophils Absolute Auto 200 /uL (0-450); Eosinophils Percent Auto 1.8 % (2-4); Hematocrit 45.9 % (41-53); Hemoglobin 15.3 g/dL (13.5-17.5); Lymphocytes Absolute Auto 1200 /uL (1100-4500); Lymphocytes Percent Auto 12.5 % (25-40); Mean Corpuscular HGB Conc 33.3 % (30-36); Mean Corpuscular Hemoglobin 30.9 PG (26-34); Mean Corpuscular Volume 92.8 fL (80-100); Monocytes Absolute Auto 800 /uL (0-900); Monocytes Percent Auto 8.4 % (3-14); Neutrophils Absolute Auto 7300 /uL (1500-7000); Platelet Count 221 X10^3/uL (150-400); Red Blood Cell Count 4.95 X10^6/uL (4.5-5.9); Red Cell Distribution Width 16.1 % (11.6-14.8); White Blood Cell Count 9.5 X10^3/uL (4.5-11.0)
[2024-07-15 13:11] LABS: BUN Creatinine Ratio 25.8 (6-22); Blood Urea Nitrogen 34 mg/dL (9-20); Carbon Dioxide 29 mmol/L (22-32); Chloride 103 mmol/L (98-107); Estimated Glomerular Filt Rate 54 mL/min (>60); Glucose 136 mg/dL (80-110); HEMOLYSIS < 15 (0-50); Potassium 4.6 mmol/L (3.4-5.1); Sodium 140 mmol/L (137-145)
== END ==
PROVIDERS: Referring Provider Internal Medicine Cardiovascular Disease; Visit Provider Internal Medicine Cardiovascular Disease
DX: I48.0 Paroxysmal atrial fibrillation (principal)
CPT/HCPCS: 36415; 80048; 85025

== ENCOUNTER → 2024-12-07 10:02 | Outpatient (CLI) | payer OTHER, SELFPAY ==
[2024-12-07 10:51] LABS: Hemoglobin A1C% w Est Avg Glu 5.9 % (4.0-6.0)
[2024-12-07 11:08] LABS: BUN Creatinine Ratio 14.2 (6-22); Blood Urea Nitrogen 19 mg/dL (9-20); Calcium 9.6 mg/dL (8.4-10.2); Carbon Dioxide 28 mmol/L (22-32); Chloride 103 mmol/L (98-107); Estimated Glomerular Filt Rate 53 mL/min (>60); Glucose 119 mg/dL (80-110); HEMOLYSIS < 15 (0-50); Potassium 4.1 mmol/L (3.4-5.1); Sodium 141 mmol/L (137-145)
[2024-12-07 11:38] LABS: TSH w/ Reflex to FT4 2.91 uIU/mL (0.47-4.68)
== END ==
PROVIDERS: PCP Family Medicine; Referring Provider Family Medicine; Visit Provider Family Medicine
DX: R73.01 Impaired fasting glucose (principal); E03.9 Hypothyroidism, unspecified; B35.1 Tinea unguium; N28.9 Disorder of kidney and ureter, unspecified; I48.20 Chronic atrial fibrillation, unspecified
CPT/HCPCS: 36415; 80048; 83036; 84443

== ENCOUNTER → 2025-05-31 13:30 | Outpatient (CLI) | payer OTHER, SELFPAY ==
[2025-05-31 14:04] LABS: Appearance Urine UA CLEAR; Bilirubin Urine UA NEGATIVE (NEGATIVE); Color Urine UA YELLOW; Glucose Urine UA NEGATIVE (Negative); Ketones Urine UA NEGATIVE (NEGATIVE); Leukocyte Esterase Urine UA NEGATIVE (NEGATIVE); Nitrite Urine UA NEGATIVE (Negative); Occult Blood Urine UA NEGATIVE (Negative); Protein Urine UA NEGATIVE (Negative); Specific Gravity Urine UA 1.015 (1.000-1.035); Urobilinogen Urine UA 0.2 E.U./dL (0.2); pH Urine UA 5.5 (4.5-8.0)
[2025-05-31 14:06] LABS: Culture Indicated Urine Cult Not Indicated
[2025-05-31 14:37] LABS: Hemoglobin A1C% w Est Avg Glu 6.4 % (4.0-6.0)
[2025-05-31 14:45] LABS: Blood Urea Nitrogen 23 mg/dL (9-20); Calcium 9.9 mg/dL (8.4-10.2); Carbon Dioxide 29 mmol/L (22-32); Chloride 99 mmol/L (98-107); Estimated Glomerular Filt Rate 55 mL/min (>60); Glucose 115 mg/dL (70-99); HEMOLYSIS < 15 (0-50); Potassium 4.7 mmol/L (3.4-5.1); Sodium 139 mmol/L (137-145)
== END ==
PROVIDERS: PCP Family Medicine; Referring Provider Family Medicine; Visit Provider Family Medicine
DX: R73.01 Impaired fasting glucose (principal); I50.9 Heart failure, unspecified; R39.198 Other difficulties with micturition
CPT/HCPCS: 36415; 80048; 81001; 83036